=== PATIENT | male | born 1970 | race African-American/Black ===

== ENCOUNTER 2017-04-13 08:34 | Inpatient (IN) | payer OTHER ==
[2017-04-13 09:11] VITALS: BMI 28.8
--- NOTE | 2017-04-13 11:05 | HP ---
CIWA Score - CIWA Score Nausea/Vomitin Muscle Tremors: 3 Anxiety: 3 Agitation: 3 Paroxysmal Sweats: 2 Orientation: 0-Oriented Tacttile Disturbances: 2-Mild Itch/Numbness/Burn Auditory Disturbances: 2-Mild Harshness/Frighten Visual Disturbances: 0-None Headache: 2-Mild CIWA-Ar Total Score: 20 Admission ROS BHS - HPI Chief Complaint: i need help to stop drinking alcohol and cocaine Allergies/Adverse Reactions: Allergies Allergy/AdvReac Type Severity Reaction Status Date / Time Penicillins Allergy Mild Hives Verified 04/13/17 11:16 seafood Allergy Mild Itching Uncoded 04/13/17 11:17 History of Present Illness: this 47 years old male with alcohol and cocaine dependence seeking detox, withdrawal symptom,last detox [facility] 03/18 completed several admission in the past asthma nicotine dependence longest period of sobriety 2 years - Ebola screening Have you traveled outside of the country in the last 21 days: No Have you had contact with anyone from an Ebola affected area: No Have you been sick,other than usual withdrawal symptoms: No - Review of Systems Constitutional: Loss of Appetite, Malaise, Night Sweats, Changes in sleep, Weakness, Unintentional Wgt. Loss EENT: reports: Tearing, Nose Congestion Respiratory: reports: No Symptoms reported Cardiac: reports: Palpitations GI: reports: Diarrhea, Nausea, Vomiting, Abdominal cramping : reports: No Symptoms Reported Musculoskeletal: reports: Back Pain, Muscle Pain Integumentary: reports: Dryness Neuro: reports: Headache, Tremors Endocrine: reports: No Symptoms Reported Hematology: reports: No Symptoms Reported Psychiatric: reports: No Sypmtoms Reported Patient History - Patient Medical History Hx Anemia: No Hx Asthma: Yes (Pt is on MDI) Hx Chronic Obstructive Pulmonary Disease (COPD): No Hx Cancer: No Hx Cardiac Disorders: No Hx Congestive Heart Failure: No Hx Hypertension: No Hx Hypercholesterolemia: No Hx Pacemaker: No HX Cerebrovascular Accident: No Hx Seizures: No Hx Dementia: No Hx Diabetes: No Hx Gastrointestinal Disorders: No Hx Genitourinary Disorders: No Hx Sexually Transmitted Disorders: No Hx Renal Disease (ESRD): No Hx Thyroid Disease: No Hx Human Immunodeficiency Virus (HIV): No (2017 last negative) Hx Hepatitis C: No Hx Depression: No Hx Suicide Attempt: No Hx Bipolar Disorder: No Hx Schizophrenia: No Other Medical History: no sucidal,no homicidal - Patient Surgical History Past Surgical History: No Hx Neurologic Surgery: No Hx Cataract Extraction: No Hx Cardiac Surgery: No Hx Lung Surgery: No Hx Breast Surgery: No Hx Breast Biopsy: No Hx Abdominal Surgery: No Hx Appendectomy: No Hx Cholecystectomy: No Hx Genitourinary Surgery: No Hx Section: No Hx Orthopedic Surgery: No Anesthesia Reaction: No - PPD History Previous Implant?: Yes Documented Results: Positive w/o proof PPD to be Administered?: No - Smoking Cessation Smoking history: Current every day smoker Have you smoked in the past 12 months: Yes Aproximately how many cigarettes per day: 4 Hx Chewing Tobacco Use: No Initiated information on smoking cessation: Yes 'Breaking Loose' booklet given: 04/13/17 - Substance & Tx. History Hx Alcohol Use: Yes Hx Substance Use: Yes Substance Use Type: Alcohol, Cocaine Hx Substance Use Treatment: Yes ([facility] 03/18) - Substances Abused Alcohol Route: Oral Frequency: Daily Amount used: 3 pints of vodka Age of first use: 11 Date of Last Use: 04/12/17 Cocaine Route: Smoking Frequency: Daily Amount used: 70$ Age of first use: 30 Date of Last Use: 04/12/17 Family Disease History - Family Disease History Family History: Denies Admission Physical Exam S - Vital Signs Vital Signs: Vital Signs - 24 hr 04/13/17 09:08 Temperature 96.8 F L Pulse Rate 80 Respiratory 18 Rate Blood Pressure 141/97 - Physical General Appearance: Yes: Moderate Distress, Tremorous, Irritable, Sweating, Anxious HEENTM: Yes: Normal ENT Inspection, DANIELA, Pharynx Normal, Other (traumatic hearing loss right) Respiratory: Yes: Lungs Clear, Normal Breath Sounds, No Respiratory Distress Neck: Yes: Within Normal Limits, Supple, Trachea in good position Breast: Yes: Within Normal Limits Cardiology: Yes: Within Normal Limits, Regular Rhythm, Regular Rate, S1, S2 Abdominal: Yes: Within Normal Limits, Normal Bowel Sounds, Non Tender, Soft Genitourinary: Yes: Within Normal Limits Back: Yes: Muscle Spasm Musculoskeletal: Yes: Back pain, Muscle Pain Extremities: Yes: Tremors 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 NML intact, Fully Oriented, Alert, Motor Strength 5/5 Integumentary: Yes: Dry Lymphatic: Yes: Within Normal Limits - Diagnostic (1) Alcohol dependence with uncomplicated withdrawal Current Visit: Yes Status: Acute (2) Asthma Current Visit: No Status: Active (3) Cocaine dependence Current Visit: No Status: Active (4) 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
[2017-04-13] MEDS ORDERED: chlordiazePOXIDE HCL 25 MG CAPSULE PO PRN (11:16)
[2017-04-13] MEDS ORDERED: ACETAMINOPHEN 325 MG TABLET (FP) PO PRN (11:16)
[2017-04-13] MEDS ORDERED: guaiFENesin/D-METHORPHAN HB 10 ML UNIT-DOSE CUPS PO PRN (11:16)
[2017-04-13] MEDS ORDERED: LOPERAMIDE HCL 2 MG CAPSULE PO PRN (11:16)
[2017-04-13] MEDS ORDERED: P-EPHED 60MG/TRIPROLIDI 2.5MG TABLET PO PRN (11:16)
[2017-04-13] MEDS ORDERED: MENTHOL/PHENOL 1 EACH UD MM PRN (11:16)
[2017-04-13] MEDS ORDERED: IBUPROFEN 400 MG TABLET (FP) PO PRN (11:16)
[2017-04-13] MEDS ORDERED: MAGNESIUM CITRATE 300 ML BOTTLE PO PRN (11:16)
[2017-04-13] MEDS ORDERED: MAGNESIUM HYDROX 2400MG/30ML ORAL SUSPENSION 30 ML CUP PO PRN (11:16)
[2017-04-13] MEDS ORDERED: MAG HYDROX/AL HYDROX/SIMETH 30 ML UNIT-DOSE CUP PO PRN (11:16)
[2017-04-13] MEDS ORDERED: hydrOXYzine PAMOATE 50 MG CAPSULE (FP) PO PRN (11:16)
[2017-04-13] MEDS ORDERED: ALBUTEROL SO4 18 GM HFA INHALER IH PRN (11:19)
[2017-04-13] MEDS ORDERED: chlordiazePOXIDE HCL 25 MG CAPSULE PO ONE (11:25)
--- NOTE | 2017-04-13 16:28 | EKG ---
Test Reason : Blood Pressure : / mmHG Vent. Rate : 067 BPM Atrial Rate : 067 BPM P-R Int : 122 ms QRS Dur : 092 ms QT Int : 396 ms P-R-T Axes : 069 038 030 degrees QTc Int : 418 ms NORMAL SINUS RHYTHM NORMAL ECG NO PREVIOUS ECGS AVAILABLE Confirmed by MD Vadim, Alfa ([id number]) on 04/13/2017 4:28:23 PM Referred By: Confirmed By:Alfa Fierro MD
[2017-04-13] MEDS: chlordiazePOXIDE HCL 25 MG CAPSULE PO SCH ×2 (17:25→22:40)
[2017-04-13] MEDS: THIAMINE HCL 100 MG TABLET (FP) PO SCH (22:40)
[2017-04-13 23:39] LABS: URINE APPEARANCE CLEAR; URINE BILIRUBIN NEGATIVE (NEGATIVE); URINE BLOOD NEGATIVE (NEGATIVE); URINE COLOR YELLOW; URINE GLUCOSE (UA) NEGATIVE (NEGATIVE); URINE KETONE 1+ (NEGATIVE); URINE LEUK ESTERASE NEGATIVE (NEGATIVE); URINE NITRITE NEGATIVE (NEGATIVE); URINE PROTEIN NEGATIVE (NEGATIVE)
[2017-04-14] MEDS: chlordiazePOXIDE HCL 25 MG CAPSULE PO SCH ×4 (05:00→22:15)
[2017-04-14 10:10] LABS: HEMATOCRIT 48.9 % (35.4-49); HEMOGLOBIN 16.3 GM/dL (11.7-16.9); MCH 29.8 pg (25.7-33.7); MCHC 33.4 g/dl (32.0-35.9); MEAN CELL VOLUME 89.4 fl (80-96); MEAN PLT VOLUME 9.4 fl (7.5-11.1); PLATELET COUNT 281 K/MM3 (134-434); RBC 5.47 M/mm3 (4.00-5.60); RDW 13.3 % (11.9-15.9); WHITE BLOOD COUNT 5.2 K/mm3 (4.0-10.0)
[2017-04-14] MEDS: PRENATAL VITAMINS W/ FOLIC ACID TABLET (FP) PO SCH (10:18)
[2017-04-14 10:37] LABS: CHLORIDE 108 mmol/L (98-107); POTASSIUM 4.2 mmol/L (3.5-5.1); SODIUM 141 mmol/L (136-145)
--- NOTE | 2017-04-14 10:45 | PN ---
[facility] CIWA - CIWA Score Nausea/Vomitin-No Nausea/No Vomiting Muscle Tremors: 2 Anxiety: 4-Mod. Anxious/Guarded Agitation: 3 Paroxysmal Sweats: 3 Orientation: 0-Oriented Tacttile Disturbances: 2-Mild Itch/Numbness/Burn Auditory Disturbances: 0-None Visual Disturbances: 3-Moderate Sensitivity Headache: 0-None Present CIWA-Ar Total Score: 17 BHS Progress Note (SOAP) Subjective: Stomach Cramping, Anxious, Interrupted Sleep, Body Aches. Objective: PT. A & O X 3, OBSERVED AMBULATING ON UNIT. NO ACUTE DISTRESS. 04/14/17 10:46 Vital Signs Temperature 96.9 F L 04/14/17 09:46 Pulse Rate 86 04/14/17 09:46 Respiratory Rate 18 04/14/17 09:46 Blood Pressure 125/81 04/14/17 09:46 O2 Sat by Pulse Oximetry (%) Laboratory Tests 04/13/17 04/14/17 20:21 05:50 WBC 5.2 RBC 5.47 Hgb 16.3 D Hct 48.9 D MCV 89.4 MCH 29.8 MCHC 33.4 RDW 13.3 Plt Count 281 MPV 9.4 Urine Color Yellow Urine Appearance Clear Urine pH 6.0 Ur Specific [place] 1.026 Urine Protein Negative Urine Glucose (UA) Negative Urine Ketones 1+ H Urine Blood Negative Urine Nitrite Negative Urine Bilirubin Negative Urine Urobilinogen 2.0 Ur Leukocyte Esterase Negative LABS NOTED. CMP, RPR, HIV AB RESULTS PENDING. 04/14/17 10:47 Assessment: 04/14/17 10:48 WITHDRAWAL SYMPTOMS. Plan: CONTINUE DETOX. INCREASE DAILY PO FLUID INTAKE.
[2017-04-14 11:00] LABS: ALBUMIN 3.9 g/dl (3.4-5.0); ALK PHOS 89 U/L (45-117); ANION GAP 5 (8-16); BLOOD UREA NITROGEN 15 mg/dL (7-18); CALCIUM 8.5 mg/dL (8.5-10.1); CO2 28 mmol/L (21-32); CREATININE 1.3 mg/dL (0.7-1.3); GLUCOSE,RANDOM 99 mg/dL (74-106); SGOT/AST 19 U/L (15-37); SGPT/ALT 21 U/L (12-78); TOT PROT 7.2 g/dl (6.4-8.2)
[2017-04-14] MEDS: THIAMINE HCL 100 MG TABLET (FP) PO SCH (22:14)
[2017-04-15] MEDS: chlordiazePOXIDE HCL 25 MG CAPSULE PO SCH ×2 (05:03→10:00)
[2017-04-15] MEDS: PRENATAL VITAMINS W/ FOLIC ACID TABLET (FP) PO SCH (09:59)
--- NOTE | 2017-04-15 11:07 | PN ---
[facility] CIWA - CIWA Score Nausea/Vomitin-No Nausea/No Vomiting Muscle Tremors: 3 Anxiety: 3 Agitation: 1-Slight > Activity Paroxysmal Sweats: 3 Orientation: 0-Oriented Tacttile Disturbances: 2-Mild Itch/Numbness/Burn Auditory Disturbances: 0-None Visual Disturbances: 2-Mild Sensitivity Headache: 0-None Present CIWA-Ar Total Score: 14 BHS Progress Note (SOAP) Subjective: Interrupted Sleep, Fatigue, Sweating. Objective: PT. A & O X 3. NO ACUTE DISTRESS. 04/15/17 11:06 Vital Signs Temperature 97.1 F L 04/15/17 09:36 Pulse Rate 94 H 04/15/17 09:36 Respiratory Rate 18 04/15/17 09:36 Blood Pressure 133/82 04/15/17 09:36 O2 Sat by Pulse Oximetry (%) Laboratory Tests 04/13/17 04/14/17 04/14/17 20:21 05:50 05:50 WBC 5.2 RBC 5.47 Hgb 16.3 D Hct 48.9 D MCV 89.4 MCH 29.8 MCHC 33.4 RDW 13.3 Plt Count 281 MPV 9.4 Sodium Potassium Chloride Carbon Dioxide Anion Gap BUN Creatinine Creat Clearance w eGFR Random Glucose Calcium Total Bilirubin AST ALT Alkaline Phosphatase Total Protein Albumin Urine Color Yellow Urine Appearance Clear Urine pH 6.0 Ur Specific [place] 1.026 Urine Protein Negative Urine Glucose (UA) Negative Urine Ketones 1+ H Urine Blood Negative Urine Nitrite Negative Urine Bilirubin Negative Urine Urobilinogen 2.0 Ur Leukocyte Esterase Negative RPR Titer HIV 1&2 Antibody Screen Negative HIV P24 Antigen Negative 04/14/17 04/14/17 05:50 05:50 WBC RBC Hgb Hct MCV MCH MCHC RDW Plt Count MPV Sodium 141 Potassium 4.2 Chloride 108 H Carbon Dioxide 28 Anion Gap 5 L BUN 15 D Creatinine 1.3 Creat Clearance w eGFR 58.67 Random Glucose 99 Calcium 8.5 Total Bilirubin 1.0 D AST 19 ALT 21 D Alkaline Phosphatase 89 Total Protein 7.2 Albumin 3.9 D Urine Color Urine Appearance Urine pH Ur Specific [place] Urine Protein Urine Glucose (UA) Urine Ketones Urine Blood Urine Nitrite Urine Bilirubin Urine Urobilinogen Ur Leukocyte Esterase RPR Titer Nonreactive HIV 1&2 Antibody Screen HIV P24 Antigen LABS NOTED. Assessment: 04/15/17 11:06 WITHDRAWAL SYMPTOMS. Plan: CONTINUE DETOX. INCREASE DAILY PO FLUID INTAKE.
[2017-04-15] MEDS: chlordiazePOXIDE 5 MG CAPSULE PO SCH ×2 (17:31→22:45)
[2017-04-15] MEDS: THIAMINE HCL 100 MG TABLET (FP) PO SCH (22:45)
[2017-04-16] MEDS: chlordiazePOXIDE 5 MG CAPSULE PO SCH ×2 (05:34→10:07)
[2017-04-16] MEDS: PRENATAL VITAMINS W/ FOLIC ACID TABLET (FP) PO SCH (10:07)
--- NOTE | 2017-04-16 12:11 | PN ---
BHS Progress Note (SOAP) Subjective: Interrupted Sleep, Fatigue. Objective: PT. A & O X 3. NO ACUTE DISTRESS. 04/16/17 12:10 Vital Signs Temperature 99.4 F 04/16/17 09:37 Pulse Rate 98 H 04/16/17 09:37 Respiratory Rate 18 04/16/17 09:37 Blood Pressure 120/82 04/16/17 09:37 O2 Sat by Pulse Oximetry (%) Laboratory Tests 04/13/17 04/14/17 04/14/17 20:21 05:50 05:50 WBC 5.2 RBC 5.47 Hgb 16.3 D Hct 48.9 D MCV 89.4 MCH 29.8 MCHC 33.4 RDW 13.3 Plt Count 281 MPV 9.4 Sodium Potassium Chloride Carbon Dioxide Anion Gap BUN Creatinine Creat Clearance w eGFR Random Glucose Calcium Total Bilirubin AST ALT Alkaline Phosphatase Total Protein Albumin Urine Color Yellow Urine Appearance Clear Urine pH 6.0 Ur Specific [place] 1.026 Urine Protein Negative Urine Glucose (UA) Negative Urine Ketones 1+ H Urine Blood Negative Urine Nitrite Negative Urine Bilirubin Negative Urine Urobilinogen 2.0 Ur Leukocyte Esterase Negative RPR Titer HIV 1&2 Antibody Screen Negative HIV P24 Antigen Negative 04/14/17 04/14/17 05:50 05:50 WBC RBC Hgb Hct MCV MCH MCHC RDW Plt Count MPV Sodium 141 Potassium 4.2 Chloride 108 H Carbon Dioxide 28 Anion Gap 5 L BUN 15 D Creatinine 1.3 Creat Clearance w eGFR 58.67 Random Glucose 99 Calcium 8.5 Total Bilirubin 1.0 D AST 19 ALT 21 D Alkaline Phosphatase 89 Total Protein 7.2 Albumin 3.9 D Urine Color Urine Appearance Urine pH Ur Specific [place] Urine Protein Urine Glucose (UA) Urine Ketones Urine Blood Urine Nitrite Urine Bilirubin Urine Urobilinogen Ur Leukocyte Esterase RPR Titer Nonreactive HIV 1&2 Antibody Screen HIV P24 Antigen LABS NOTED. Assessment: 04/16/17 12:10 WITHDRAWAL SYMPTOMS. Plan: CONTINUE DETOX. INCREASE DAILY PO FLUID INTAKE.
[2017-04-16] MEDS: chlordiazePOXIDE HCL 10 MG CAPSULE PO SCH ×2 (17:20→22:24)
[2017-04-16] MEDS: THIAMINE HCL 100 MG TABLET (FP) PO SCH (22:24)
[2017-04-17] MEDS: chlordiazePOXIDE HCL 10 MG CAPSULE PO SCH ×2 (05:33→11:02)
[2017-04-17 06:19] VITALS: BP 120/72; PULSE 75; TEMP 97
[2017-04-17] MEDS: PRENATAL VITAMINS W/ FOLIC ACID TABLET (FP) PO SCH (11:02)
--- NOTE | 2017-04-17 18:16 | DS ---
[facility] Detox Discharge Summary Admission Date: 04/13/17 Discharge Date: 04/17/17 - History Present History: Alcohol Dependence, Cocaine Dependence Additional Comments: NO BEDS AVAILABLE AT [facility] AT THIS TIME. PATIENT CONTACT [facility] ADMISSIONS ON 04/20/2017 TO APPLY FOR ADMISSION AT THAT TIME. PATIENT WAS DISCHARGED FROM DETOX UNIT IN STABLE MEDICAL CONDITION. Pertinent Past History: Asthma, Hearing Loss of Right Ear Post trauma. - Physical Exam Results Vital Signs: Vital Signs Temperature 97 F L 04/17/17 06:18 Pulse Rate 75 04/17/17 06:18 Respiratory Rate 18 04/17/17 06:18 Blood Pressure 120/72 04/17/17 06:18 O2 Sat by Pulse Oximetry (%) Pertinent Admission Physical Exam Findings: WITHDRAWAL SYMPTOMS. Laboratory Tests 04/13/17 04/14/17 04/14/17 20:21 05:50 05:50 WBC 5.2 RBC 5.47 Hgb 16.3 D Hct 48.9 D MCV 89.4 MCH 29.8 MCHC 33.4 RDW 13.3 Plt Count 281 MPV 9.4 Sodium Potassium Chloride Carbon Dioxide Anion Gap BUN Creatinine Creat Clearance w eGFR Random Glucose Calcium Total Bilirubin AST ALT Alkaline Phosphatase Total Protein Albumin Urine Color Yellow Urine Appearance Clear Urine pH 6.0 Ur Specific [place] 1.026 Urine Protein Negative Urine Glucose (UA) Negative Urine Ketones 1+ H Urine Blood Negative Urine Nitrite Negative Urine Bilirubin Negative Urine Urobilinogen 2.0 Ur Leukocyte Esterase Negative RPR Titer HIV 1&2 Antibody Screen Negative HIV P24 Antigen Negative 04/14/17 04/14/17 05:50 05:50 WBC RBC Hgb Hct MCV MCH MCHC RDW Plt Count MPV Sodium 141 Potassium 4.2 Chloride 108 H Carbon Dioxide 28 Anion Gap 5 L BUN 15 D Creatinine 1.3 Creat Clearance w eGFR 58.67 Random Glucose 99 Calcium 8.5 Total Bilirubin 1.0 D AST 19 ALT 21 D Alkaline Phosphatase 89 Total Protein 7.2 Albumin 3.9 D Urine Color Urine Appearance Urine pH Ur Specific [place] Urine Protein Urine Glucose (UA) Urine Ketones Urine Blood Urine Nitrite Urine Bilirubin Urine Urobilinogen Ur Leukocyte Esterase RPR Titer Nonreactive HIV 1&2 Antibody Screen HIV P24 Antigen LABS NOTED. - Treatment Hospital Course: Detox Protocol Followed, Detoxed Safely, Responded well, Discharged Condition Good, Rehab Referral Accepted Patient has Accepted a Rehab Referral to: [facility] (PATIENCE N.Srikanth.) . 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
== END 2017-04-17 10:05 | disposition home or self-care (01) | DRG 774 ==
LOC: YASAS 08:34 → Y3N 11:03
PROVIDERS: ADMIT Internal Medicine; ATTEND Internal Medicine
PROC: HZ2ZZZZ Detoxification Services for Substance Abuse Treatment (ICD-10-PCS; principal; 2017-04-13)
DX: F10.230 Alcohol dependence with withdrawal, uncomplicated (principal); F14.20 Cocaine dependence, uncomplicated; F17.201 Nicotine dependence, unspecified, in remission; J45.909 Unspecified asthma, uncomplicated; H91.8X1 Other specified hearing loss, right ear; Z88.0 Allergy status to penicillin; Z91.013 Allergy to seafood
CPT/HCPCS: 36415; 71046-TC-FY; 80053; 81003; 85027; 86593; 87389; 93005; 93010

== ENCOUNTER 2018-03-02 11:51 | Inpatient (IN) | payer OTHER ==
[2018-03-02 12:20] VITALS: BMI 26.7
--- NOTE | 2018-03-02 13:24 | HP ---
CIWA Score Nausea/Vomitin Muscle Tremors: 2 Anxiety: 2 Agitation: 2 Paroxysmal Sweats: 1-Minimal Palms Moist Orientation: 0-Oriented Tacttile Disturbances: 1-Very Mild Itch/Numbness Auditory Disturbances: 1-Very Mild Visual Disturbances: 0-None Headache: 2-Mild CIWA-Ar Total Score: 13 - Admission Criteria [facility] Guidelines: Admission for Medically Managed Detox: Requires at least one of the followin. CIWA greater than 12 2. Seizures within the past 24 hours 3. Delirium tremens within the past 24 hours 4. Hallucinations within the past 24 hours 5. Acute intervention needed for co occurring medical disorder 6. Acute intervention needed for co occurring psychiatric disorder 7. Severe withdrawal that cannot be handled at a lower level of care (continued vomiting, continued diarrhea, abnormal vital signs) requiring intravenous medication and/or fluids 8. Patient presents the following: CIWA greater than 12 Admission Criteria Met: Admission criteria met Admission ROS BHS - HPI Chief Complaint: i need help to stop drinking alcohol and cocaine Allergies/Adverse Reactions: Allergies Allergy/AdvReac Type Severity Reaction Status Date / Time Penicillins Allergy Mild Hives Verified 03/02/18 13:13 seafood Allergy Mild Itching Uncoded 03/02/18 13:13 History of Present Illness: this 48 years old male with alcohol and cocaine dependence,withdrawal symptom, requested detox,last [facility] 01/16 weight loss nicotine dependence multiple admissions in the past but keep relapsing asthma plan for rehab after detox Exam Limitations: No Limitations - Ebola screening Have you traveled outside of the country in the last 21 days: No Have you had contact with anyone from an Ebola affected area: No Have you been sick,other than usual withdrawal symptoms: No Do you have a fever: No - Review of Systems Constitutional: Loss of Appetite, Malaise, Night Sweats, Weakness, Unintentional Wgt. Loss EENT: reports: Nose Congestion Respiratory: reports: No Symptoms reported Cardiac: reports: No Symptoms Reported GI: reports: Nausea, Poor Appetite, Abdominal cramping : reports: No Symptoms Reported Musculoskeletal: reports: Back Pain, Muscle Pain Integumentary: reports: Dryness Neuro: reports: Headache, Tremors Endocrine: reports: No Symptoms Reported Hematology: reports: No Symptoms Reported Psychiatric: reports: No Sypmtoms Reported Patient History - Patient Medical History Hx Anemia: No Hx Asthma: Yes (Pt is on MDI) Hx Chronic Obstructive Pulmonary Disease (COPD): No Hx Cancer: No Hx Cardiac Disorders: No Hx Congestive Heart Failure: No Hx Hypertension: No Hx Hypercholesterolemia: No Hx Pacemaker: No HX Cerebrovascular Accident: No Hx Seizures: No Hx Dementia: No Hx Diabetes: No Hx Gastrointestinal Disorders: No Hx Genitourinary Disorders: No Hx Sexually Transmitted Disorders: No Hx Renal Disease (ESRD): No Hx Thyroid Disease: No Hx Human Immunodeficiency Virus (HIV): No (2017 last negative) Hx Hepatitis C: No Hx Depression: No Hx Suicide Attempt: No Hx Bipolar Disorder: No Hx Schizophrenia: No Other Medical History: no suicidal,nohomicidal - Patient Surgical History Past Surgical History: No Hx Neurologic Surgery: No Hx Cataract Extraction: No Hx Cardiac Surgery: No Hx Lung Surgery: No Hx Breast Surgery: No Hx Breast Biopsy: No Hx Abdominal Surgery: No Hx Appendectomy: No Hx Cholecystectomy: No Hx Genitourinary Surgery: No Hx Section: No Hx Orthopedic Surgery: No Anesthesia Reaction: No - PPD History Previous Implant?: Yes Documented Results: Positive w/proof PPD to be Administered?: No - Smoking Cessation Smoking history: Current every day smoker Have you smoked in the past 12 months: Yes Aproximately how many cigarettes per day: 4 Hx Chewing Tobacco Use: No Initiated information on smoking cessation: Yes 'Breaking Loose' booklet given: 03/02/18 - Substance & Tx. History Hx Alcohol Use: Yes Hx Substance Use: Yes Substance Use Type: Alcohol Hx Substance Use Treatment: Yes ([facility] 01/16 not completed) - Substances Abused Alcohol Route: Oral Frequency: Daily Amount used: 1 and 1/2 pints vodka Age of first use: 11 Date of Last Use: 03/02/18 Crack Route: Smoking Frequency: Daily Amount used: $100 Age of first use: 29 Date of Last Use: 03/01/18 Family Disease History - Family Disease History Family History: Denies Admission Physical Exam BHS - Vital Signs Vital Signs: Vital Signs - 24 hr 03/02/18 12:15 Temperature 97.2 F L Pulse Rate 80 Respiratory 20 Rate Blood Pressure 147/88 - Physical General Appearance: Yes: Moderate Distress, Tremorous, Irritable, Sweating HEENTM: Yes: Normal ENT Inspection, DANIELA, Pharynx Normal, Other (hearing loss right) Respiratory: Yes: Within Normal Limits, Lungs Clear, Normal Breath Sounds Neck: Yes: Within Normal Limits, Supple, Trachea in good position Breast: Yes: Within Normal Limits Cardiology: Yes: Within Normal Limits, Regular Rhythm, Regular Rate, S1, S2 Abdominal: Yes: Within Normal Limits, Normal Bowel Sounds, Non Tender, Soft Genitourinary: Yes: Within Normal Limits Back: Yes: Muscle Spasm Musculoskeletal: Yes: full range of Motion, Back pain, Muscle Pain Extremities: Yes: Within Normal Limits, Normal Range of Motion, Tremors 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 - Detox or Rehab [facility] Level of Care: Medically Managed Detox Regimen/Protocol: Librium [facility] Breath Alcohol Content Breath Alcohol Content: 0.042 Urine Drug Screen - Results Drug Screen Negative: No Urine Drug Screen Results: JOSSY-Cocaine
[2018-03-02] MEDS ORDERED: guaiFENesin/D-METHORPHAN HB 10 ML UNIT-DOSE CUPS PO PRN (13:30)
[2018-03-02] MEDS ORDERED: ACETAMINOPHEN 325 MG TABLET (FP) PO PRN (13:30)
[2018-03-02] MEDS ORDERED: LOPERAMIDE HCL 2 MG CAPSULE PO PRN (13:30)
[2018-03-02] MEDS ORDERED: chlordiazePOXIDE HCL 25 MG CAPSULE PO PRN (13:30)
[2018-03-02] MEDS ORDERED: MAGNESIUM HYDROX 2400MG/30ML ORAL SUSPENSION 30 ML CUP PO PRN (13:30)
[2018-03-02] MEDS ORDERED: MAGNESIUM CITRATE 300 ML BOTTLE PO PRN (13:30)
[2018-03-02] MEDS ORDERED: MENTHOL/PHENOL 1 EACH UD MM PRN (13:30)
[2018-03-02] MEDS ORDERED: MAG HYDROX/AL HYDROX/SIMETH 30 ML UNIT-DOSE CUP PO PRN (13:30)
[2018-03-02] MEDS ORDERED: P-EPHED 60MG/TRIPROLIDI 2.5MG TABLET PO PRN (13:30)
[2018-03-02] MEDS ORDERED: IBUPROFEN 400 MG TABLET (FP) PO PRN (13:30)
[2018-03-02] MEDS ORDERED: ALBUTEROL SO4 8 GM HFA INHALER IH PRN (13:33)
[2018-03-02] MEDS: chlordiazePOXIDE HCL 25 MG CAPSULE PO SCH ×2 (17:13→22:15)
[2018-03-02] MEDS ORDERED: MELATONIN 5 MG TABLETS PO PRN (22:00)
[2018-03-02] MEDS: THIAMINE HCL 100 MG TABLET (FP) PO SCH (22:15)
[2018-03-03] MEDS: chlordiazePOXIDE HCL 25 MG CAPSULE PO SCH ×4 (06:01→22:25)
[2018-03-03 10:06] LABS: HEMATOCRIT 47.7 % (35.4-49); HEMOGLOBIN 15.4 GM/dL (11.7-16.9); MCH 29.2 pg (25.7-33.7); MCHC 32.3 g/dl (32.0-35.9); MEAN CELL VOLUME 90.5 fl (80-96); MEAN PLT VOLUME 8.9 fl (7.5-11.1); PLATELET COUNT 249 K/MM3 (134-434); RBC 5.27 M/mm3 (4.00-5.60); WHITE BLOOD COUNT 4.3 K/mm3 (4.0-10.0)
[2018-03-03] MEDS: PRENATAL VITAMINS W/ FOLIC ACID TABLET (FP) PO SCH (10:38)
[2018-03-03 10:42] LABS: ALBUMIN 3.3 g/dl (3.4-5.0); ALK PHOS 92 U/L (45-117); ANION GAP 8 MMOL/L (8-16); BILIRUBIN,TOTAL 0.3 mg/dL (0.2-1); BLOOD UREA NITROGEN 15 mg/dL (7-18); CALCIUM 8.5 mg/dL (8.5-10.1); CHLORIDE 110 mmol/L (98-107); CO2 24 mmol/L (21-32); GLUCOSE,RANDOM 114 mg/dL (74-106); SGOT/AST 15 U/L (15-37); SGPT/ALT 17 U/L (13-61); SODIUM 142 mmol/L (136-145); TOT PROT 6.1 g/dl (6.4-8.2)
--- NOTE | 2018-03-03 16:25 | PN ---
[facility] CIWA - CIWA Score Nausea/Vomitin-No Nausea/No Vomiting Muscle Tremors: None Anxiety: 3 Agitation: 0-Normal Activity Paroxysmal Sweats: 3 Orientation: 0-Oriented Tacttile Disturbances: 3-Moderate Itch/Numb/Burn Auditory Disturbances: 2-Mild Harshness/Frighten Visual Disturbances: 2-Mild Sensitivity Headache: 0-None Present CIWA-Ar Total Score: 13 S Progress Note (SOAP) Subjective: Fatigue, Sweating, Interrupted Sleep. Objective: PATIENT A & O X 3. IN NO ACUTE DISTRESS. 03/03/18 16:24 Vital Signs Temperature 97.3 F L 03/03/18 14:10 Pulse Rate 84 03/03/18 14:10 Respiratory Rate 18 03/03/18 14:10 Blood Pressure 120/64 03/03/18 14:10 O2 Sat by Pulse Oximetry (%) Laboratory Tests 03/03/18 03/03/18 03/03/18 07:00 07:00 07:00 WBC 4.3 RBC 5.27 Hgb 15.4 Hct 47.7 MCV 90.5 MCH 29.2 MCHC 32.3 RDW 13.0 Plt Count 249 MPV 8.9 Sodium 142 Potassium 4.0 Chloride 110 H Carbon Dioxide 24 Anion Gap 8 BUN 15 Creatinine 1.0 Creat Clearance w eGFR > 60 Random Glucose 114 H Calcium 8.5 Total Bilirubin 0.3 AST 15 ALT 17 Alkaline Phosphatase 92 Total Protein 6.1 L Albumin 3.3 L RPR Titer Nonreactive LABS NOTED. Assessment: 03/03/18 16:24 WITHDRAWAL SYMPTOMS. Plan: CONTINUE DETOX.
[2018-03-03] MEDS: THIAMINE HCL 100 MG TABLET (FP) PO SCH (22:25)
[2018-03-04] MEDS: chlordiazePOXIDE HCL 25 MG CAPSULE PO SCH ×2 (06:00→11:00)
[2018-03-04 06:31] VITALS: TEMP 97.5
[2018-03-04] MEDS: PRENATAL VITAMINS W/ FOLIC ACID TABLET (FP) PO SCH (11:00)
[2018-03-04 15:44] VITALS: BP 119/75; PULSE 92
[2018-03-04] MEDS ORDERED: chlordiazePOXIDE 5 MG CAPSULE PO SCH (17:00)
--- NOTE | 2018-03-04 17:16 | DS ---
[facility] Detox Discharge Summary Admission Date: 03/02/18 Discharge Date: 03/04/18 - History Present History: Alcohol Dependence, Cocaine Dependence Pertinent Past History: 48 years old male admitted with alcohol and cocaine dependence- says that he wants to go home- that the detox here is not really helping him. The librium is making him sleepy and not really helping him. D/w pt that we could reduce dosage etc.. but pt states he wants to detox on his own. d/w pt risks of leaving before detox is completed- relapse to alcohol and cocaine use. Pt states does not need medications for home use - Physical Exam Results Vital Signs: Vital Signs Temperature 97.5 F L 03/04/18 15:44 Pulse Rate 92 H 03/04/18 15:44 Respiratory Rate 18 03/04/18 15:44 Blood Pressure 119/75 03/04/18 15:44 O2 Sat by Pulse Oximetry (%) - Medication Discharge Medications: Ambulatory Orders Albuterol Sulfate Inhaler - [Ventolin Hfa *Inhaler*] 2 inh IH Q4H PRN 10/26/11
--- NOTE | 2018-03-04 17:55 | PN ---
[facility] CIWA - CIWA Score Nausea/Vomitin-No Nausea/No Vomiting Muscle Tremors: None Anxiety: 4-Mod. Anxious/Guarded Agitation: 0-Normal Activity Paroxysmal Sweats: 1-Minimal Palms Moist Orientation: 0-Oriented Tacttile Disturbances: 2-Mild Itch/Numbness/Burn Auditory Disturbances: 0-None Visual Disturbances: 1-Very Mild Sensitivity Headache: 0-None Present CIWA-Ar Total Score: 8 BHS Progress Note (SOAP) Subjective: Anxious, Interrupted Sleep. Objective: PATIENT A & O X 3. IN NO ACUTE DISTRESS. 03/04/18 17:55 Vital Signs Temperature 97.5 F L 03/04/18 15:44 Pulse Rate 92 H 03/04/18 15:44 Respiratory Rate 18 03/04/18 15:44 Blood Pressure 119/75 03/04/18 15:44 O2 Sat by Pulse Oximetry (%) Laboratory Tests 03/03/18 03/03/18 03/03/18 07:00 07:00 07:00 WBC 4.3 RBC 5.27 Hgb 15.4 Hct 47.7 MCV 90.5 MCH 29.2 MCHC 32.3 RDW 13.0 Plt Count 249 MPV 8.9 Sodium 142 Potassium 4.0 Chloride 110 H Carbon Dioxide 24 Anion Gap 8 BUN 15 Creatinine 1.0 Creat Clearance w eGFR > 60 Random Glucose 114 H Calcium 8.5 Total Bilirubin 0.3 AST 15 ALT 17 Alkaline Phosphatase 92 Total Protein 6.1 L Albumin 3.3 L RPR Titer Nonreactive LABS NOTED. Assessment: 03/04/18 17:56 WITHDRAWAL SYMPTOMS. Plan: CONTINUE DETOX.
[2018-03-05] MEDS ORDERED: chlordiazePOXIDE HCL 10 MG CAPSULE PO SCH (17:00)
== END 2018-03-04 17:20 | disposition left against medical advice (07) | DRG 770 ==
LOC: YASAS 11:51 → Y6N 13:27
PROC: HZ2ZZZZ Detoxification Services for Substance Abuse Treatment (ICD-10-PCS; principal; 2018-03-02)
DX: F10.230 Alcohol dependence with withdrawal, uncomplicated (principal); F14.20 Cocaine dependence, uncomplicated; F17.210 Nicotine dependence, cigarettes, uncomplicated; J45.909 Unspecified asthma, uncomplicated; H91.8X1 Other specified hearing loss, right ear; Z88.0 Allergy status to penicillin; Z91.013 Allergy to seafood
CPT/HCPCS: 36415; 80053; 85027; 86593

== ENCOUNTER 2018-04-08 11:16 | Inpatient (IN) | payer OTHER ==
[2018-04-08 11:42] VITALS: BMI 24.7
--- NOTE | 2018-04-08 12:11 | HP ---
CIWA Score Nausea/Vomitin Muscle Tremors: 1-None Visible, but [place] Anxiety: 0-No Anxiety, at Ease Agitation: 0-Normal Activity Paroxysmal Sweats: 3 Orientation: 0-Oriented Tacttile Disturbances: 1-Very Mild Itch/Numbness Auditory Disturbances: 0-None Visual Disturbances: 2-Mild Sensitivity Headache: 3-Moderate CIWA-Ar Total Score: 12 - Admission Criteria OASAS Guidelines: Admission for Medically Managed Detox: Requires at least one of the followin. CIWA greater than 12 2. Seizures within the past 24 hours 3. Delirium tremens within the past 24 hours 4. Hallucinations within the past 24 hours 5. Acute intervention needed for co occurring medical disorder 6. Acute intervention needed for co occurring psychiatric disorder 7. Severe withdrawal that cannot be handled at a lower level of care (continued vomiting, continued diarrhea, abnormal vital signs) requiring intravenous medication and/or fluids 8. Admission ROS S - HPI Allergies/Adverse Reactions: Allergies Allergy/AdvReac Type Severity Reaction Status Date / Time Penicillins Allergy Severe Hives Verified 04/08/18 13:35 seafood Allergy Severe Itching Uncoded 04/08/18 13:35 History of Present Illness: patient here requesting detox from etoh use , reports 2 pints " for years " , reports latest use yesterday , current symptoms as above , starts drinking around noon , denies seizures, blackouts , + tremors , denies falls while intoxicated . cocaine : 100 $/day denies IVDU tobacco : occasional PMHX : denies PSHX : denies PSych : denies , denies current SI / HI SHx : homeless , finances habit though family assistance . Exam Limitations: No Limitations - Ebola screening Have you traveled outside of the country in the last 21 days: No Have you had contact with anyone from an Ebola affected area: No Have you been sick,other than usual withdrawal symptoms: No Do you have a fever: No - Review of Systems Constitutional: See HPI EENT: reports: Other (denies vision loss, denies dysphagia) Respiratory: reports: No Symptoms reported Cardiac: reports: No Symptoms Reported GI: reports: See HPI : reports: No Symptoms Reported Musculoskeletal: reports: No Symptoms Reported Integumentary: reports: No Symptoms Reported Neuro: reports: Headache Endocrine: reports: No Symptoms Reported Psychiatric: reports: Orientated x3, Anxious Patient History - Patient Medical History Hx Anemia: No Hx Asthma: Yes (Pt is on MDI) Hx Chronic Obstructive Pulmonary Disease (COPD): No Hx Cancer: No Hx Cardiac Disorders: No Hx Congestive Heart Failure: No Hx Hypertension: No Hx Hypercholesterolemia: No Hx Pacemaker: No HX Cerebrovascular Accident: No Hx Seizures: No Hx Dementia: No Hx Diabetes: No Hx Gastrointestinal Disorders: No Hx Genitourinary Disorders: No Hx Sexually Transmitted Disorders: No Hx Renal Disease (ESRD): No Hx Thyroid Disease: No Hx Human Immunodeficiency Virus (HIV): No (2017 last negative) Hx Hepatitis C: No Hx Depression: No Hx Suicide Attempt: No Hx Bipolar Disorder: No Hx Schizophrenia: No - Patient Surgical History Past Surgical History: No Hx Neurologic Surgery: No Hx Cataract Extraction: No Hx Cardiac Surgery: No Hx Lung Surgery: No Hx Breast Surgery: No Hx Breast Biopsy: No Hx Abdominal Surgery: No Hx Appendectomy: No Hx Cholecystectomy: No Hx Genitourinary Surgery: No Hx Section: No Hx Orthopedic Surgery: No Anesthesia Reaction: No - Smoking Cessation Smoking history: Current every day smoker Have you smoked in the past 12 months: Yes Aproximately how many cigarettes per day: 4 Hx Chewing Tobacco Use: No Initiated information on smoking cessation: No - Substances Abused Crack Route: Smoking Frequency: Daily Amount used: $100 Age of first use: 28 Date of Last Use: 04/07/18 Alcohol-vodka/beer Route: Oral Frequency: Daily Amount used: 2 pts./1-6 pk. Age of first use: 11 Date of Last Use: 04/07/18 Family Disease History - Family Disease History Family History: Denies Admission Physical Exam S - Vital Signs Vital Signs: Vital Signs - 24 hr 04/08/18 11:38 Temperature 98.2 F Pulse Rate 79 Respiratory 18 Rate Blood Pressure 131/92 - Physical General Appearance: Yes: Mild Distress HEENTM: Yes: EOMI, Hearing grossly Normal, Normocephalic, Normal Voice Respiratory: Yes: Chest Non-Tender, Lungs Clear, Normal Breath Sounds Neck: Yes: No masses,lesions,Nodules, Trachea in good position Cardiology: Yes: Regular Rhythm, Regular Rate, S1, S2 Abdominal: Yes: Normal Bowel Sounds, Non Tender, Soft Back: Yes: Normal Inspection Musculoskeletal: Yes: Gait Steady Extremities: Yes: Normal Capillary Refill, Normal Range of Motion, Non-Tender Neurological: Yes: Motor Strength 5/5 Integumentary: Yes: Normal Color - Diagnostic (1) Cocaine dependence Current Visit: No Status: Chronic (2) Alcohol dependence with uncomplicated withdrawal Current Visit: No Status: Acute (3) Nicotine dependence Current Visit: No Status: Chronic Qualifiers: Nicotine product type: cigarettes BHS Breath Alcohol Content Breath Alcohol Content: 0 Urine Drug Screen - Results Drug Screen Negative: No Urine Drug Screen Results: [facility] Inpatient Rehab Admission - Rehab Decision to Admit Inpatient rehab admission?: No
[2018-04-08] MEDS ORDERED: MENTHOL/PHENOL 1 EACH UD MM PRN (12:24)
[2018-04-08] MEDS ORDERED: diazePAM 5 MG TABLET PO PRN (12:24)
[2018-04-08] MEDS ORDERED: MAGNESIUM CITRATE 300 ML BOTTLE PO PRN (12:24)
[2018-04-08] MEDS ORDERED: MAGNESIUM HYDROX 2400MG/30ML ORAL SUSPENSION 30 ML CUP PO PRN (12:24)
[2018-04-08] MEDS ORDERED: NICOTINE POLACRILEX 2 MG GUM BUC PRN (12:24)
[2018-04-08] MEDS ORDERED: ACETAMINOPHEN 325 MG TABLET (FP) PO PRN (12:24)
[2018-04-08] MEDS ORDERED: IBUPROFEN 400 MG TABLET (FP) PO PRN (12:24)
[2018-04-08] MEDS ORDERED: MAG HYDROX/AL HYDROX/SIMETH 30 ML UNIT-DOSE CUP PO PRN (12:24)
[2018-04-08] MEDS: diazePAM 5 MG TABLET PO SCH ×2 (14:55→22:21)
[2018-04-08] MEDS: MELATONIN 5 MG TABLETS PO PRN (22:21)
[2018-04-08] MEDS: THIAMINE HCL 100 MG TABLET (FP) PO SCH (22:21)
[2018-04-09] MEDS: diazePAM 5 MG TABLET PO SCH ×3 (05:13→22:30)
[2018-04-09] MEDS: PRENATAL VITAMINS W/ FOLIC ACID TABLET (FP) PO SCH (10:33)
[2018-04-09 11:28] LABS: ALBUMIN 3.6 g/dl (3.4-5.0); ALK PHOS 87 U/L (45-117); ANION GAP 5 MMOL/L (8-16); BILIRUBIN,TOTAL 0.5 mg/dL (0.2-1); BLOOD UREA NITROGEN 14 mg/dL (7-18); CALCIUM 8.7 mg/dL (8.5-10.1); CHLORIDE 109 mmol/L (98-107); CO2 27 mmol/L (21-32); CREATININE 1.2 mg/dL (0.55-1.3); GLUCOSE,RANDOM 87 mg/dL (74-106); POTASSIUM 4.3 mmol/L (3.5-5.1); SGOT/AST 21 U/L (15-37); SGPT/ALT 23 U/L (13-61); SODIUM 141 mmol/L (136-145); TOT PROT 6.6 g/dl (6.4-8.2)
[2018-04-09 11:56] LABS: HEMATOCRIT 43.6 % (35.4-49); HEMOGLOBIN 14.9 GM/dL (11.7-16.9); MCH 31.3 pg (25.7-33.7); MCHC 34.3 g/dl (32.0-35.9); MEAN CELL VOLUME 91.3 fl (80-96); MEAN PLT VOLUME 9.6 fl (7.5-11.1); PLATELET COUNT 223 K/MM3 (134-434); RBC 4.78 M/mm3 (4.00-5.60); RDW 13.9 % (11.9-15.9); WHITE BLOOD COUNT 3.2 K/mm3 (4.0-10.0)
--- NOTE | 2018-04-09 15:22 | PN ---
[facility] CIWA - CIWA Score Nausea/Vomitin-No Nausea/No Vomiting Muscle Tremors: None Anxiety: 2 Agitation: 0-Normal Activity Paroxysmal Sweats: 3 Orientation: 0-Oriented Tacttile Disturbances: 2-Mild Itch/Numbness/Burn Auditory Disturbances: 1-Very Mild Visual Disturbances: 3-Moderate Sensitivity Headache: 0-None Present CIWA-Ar Total Score: 11 S Progress Note (SOAP) Subjective: Interrupted Sleep, Sweating, Stomach Cramping. Objective: PATIENT A & O X 3. IN NO ACUTE DISTRESS. 04/09/18 15:21 Vital Signs Temperature 97.2 F L 04/09/18 13:27 Pulse Rate 93 H 04/09/18 13:27 Respiratory Rate 20 04/09/18 13:27 Blood Pressure 130/83 04/09/18 13:27 O2 Sat by Pulse Oximetry (%) Laboratory Tests 04/09/18 04/09/18 04/09/18 05:45 05:45 05:45 WBC 3.2 L RBC 4.78 Hgb 14.9 Hct 43.6 MCV 91.3 MCH 31.3 MCHC 34.3 RDW 13.9 Plt Count 223 MPV 9.6 Sodium 141 Potassium 4.3 Chloride 109 H Carbon Dioxide 27 Anion Gap 5 L BUN 14 Creatinine 1.2 Creat Clearance w eGFR > 60 Random Glucose 87 Calcium 8.7 Total Bilirubin 0.5 AST 21 ALT 23 Alkaline Phosphatase 87 Total Protein 6.6 Albumin 3.6 RPR Titer Nonreactive LABS NOTED. Assessment: 04/09/18 15:21 WITHDRAWAL SYMPTOMS. LEUKOPENIA. 04/09/18 15:21 Plan: CONTINUE DETOX.
[2018-04-09] MEDS: MELATONIN 5 MG TABLETS PO PRN (22:30)
[2018-04-09] MEDS: THIAMINE HCL 100 MG TABLET (FP) PO SCH (22:30)
[2018-04-10] MEDS ORDERED: diazePAM 5 MG TABLET PO SCH (10:00)
[2018-04-10] MEDS: PRENATAL VITAMINS W/ FOLIC ACID TABLET (FP) PO SCH (10:03)
[2018-04-10] MEDS: diazePAM 5 MG TABLET PO SCH ×2 (10:03→22:52)
--- NOTE | 2018-04-10 12:23 | PN ---
S CIWA - CIWA Score Nausea/Vomitin-No Nausea/No Vomiting Muscle Tremors: 3 Anxiety: 1-Mildly Anxious Agitation: 2 Paroxysmal Sweats: 1-Minimal Palms Moist Orientation: 1-Uncertain about Date Tacttile Disturbances: 0-None Auditory Disturbances: 0-None Visual Disturbances: 0-None Headache: 2-Mild CIWA-Ar Total Score: 10 S Progress Note (SOAP) Subjective: tremor sweating anxiety trouble sleep at night Objective: 04/10/18 12:22 Vital Signs Temperature 97.3 F L 04/10/18 09:11 Pulse Rate 75 04/10/18 09:11 Respiratory Rate 18 04/10/18 09:11 Blood Pressure 133/84 04/10/18 09:11 O2 Sat by Pulse Oximetry (%) Laboratory Last Values WBC 3.2 K/mm3 (4.0-10.0) L 04/09/18 05:45 RBC 4.78 M/mm3 (4.00-5.60) 04/09/18 05:45 Hgb 14.9 GM/dL (11.7-16.9) 04/09/18 05:45 Hct 43.6 % (35.4-49) 04/09/18 05:45 MCV 91.3 fl (80-96) 04/09/18 05:45 MCH 31.3 pg (25.7-33.7) 04/09/18 05:45 MCHC 34.3 g/dl (32.0-35.9) 04/09/18 05:45 RDW 13.9 % (11.9-15.9) 04/09/18 05:45 Plt Count 223 K/MM3 (134-434) 04/09/18 05:45 MPV 9.6 fl (7.5-11.1) 04/09/18 05:45 Sodium 141 mmol/L (136-145) 04/09/18 05:45 Potassium 4.3 mmol/L (3.5-5.1) 04/09/18 05:45 Chloride 109 mmol/L (98-107) H 04/09/18 05:45 Carbon Dioxide 27 mmol/L (21-32) 04/09/18 05:45 Anion Gap 5 MMOL/L (8-16) L 04/09/18 05:45 BUN 14 mg/dL (7-18) 04/09/18 05:45 Creatinine 1.2 mg/dL (0.55-1.3) 04/09/18 05:45 Creat Clearance w eGFR > 60 (>60) 04/09/18 05:45 Random Glucose 87 mg/dL (74-106) 04/09/18 05:45 Calcium 8.7 mg/dL (8.5-10.1) 04/09/18 05:45 Total Bilirubin 0.5 mg/dL (0.2-1) 04/09/18 05:45 AST 21 U/L (15-37) 04/09/18 05:45 ALT 23 U/L (13-61) 04/09/18 05:45 Alkaline Phosphatase 87 U/L (45-117) 04/09/18 05:45 Total Protein 6.6 g/dl (6.4-8.2) 04/09/18 05:45 Albumin 3.6 g/dl (3.4-5.0) 04/09/18 05:45 RPR Titer Nonreactive (NONREACTIVE) 04/09/18 05:45 lab noted Assessment: 04/10/18 12:22 withdrawal sx Plan: continue detox
[2018-04-10] MEDS: THIAMINE HCL 100 MG TABLET (FP) PO SCH (22:52)
[2018-04-10] MEDS: MELATONIN 5 MG TABLETS PO PRN (22:53)
--- NOTE | 2018-04-11 09:51 | PN ---
S CIWA - CIWA Score Nausea/Vomitin-No Nausea/No Vomiting Muscle Tremors: 1-None Visible, but [place] Anxiety: 2 Agitation: 1-Slight > Activity Paroxysmal Sweats: 1-Minimal Palms Moist Orientation: 0-Oriented Tacttile Disturbances: 0-None Auditory Disturbances: 0-None Visual Disturbances: 0-None Headache: 1-Very Mild CIWA-Ar Total Score: 6 S Progress Note (SOAP) Subjective: counselor stated that insurance approved one more day of detox change discharge date to 04/12/18 doing good in detox mild tremor social with peers in day room discuss aftercare possible institution [facility] Objective: 04/11/18 11:49 Vital Signs Temperature 96.8 F L 04/11/18 09:09 Pulse Rate 89 04/11/18 09:09 Respiratory Rate 18 04/11/18 09:09 Blood Pressure 135/89 04/11/18 09:09 O2 Sat by Pulse Oximetry (%) Laboratory Last Values WBC 3.2 K/mm3 (4.0-10.0) L 04/09/18 05:45 RBC 4.78 M/mm3 (4.00-5.60) 04/09/18 05:45 Hgb 14.9 GM/dL (11.7-16.9) 04/09/18 05:45 Hct 43.6 % (35.4-49) 04/09/18 05:45 MCV 91.3 fl (80-96) 04/09/18 05:45 MCH 31.3 pg (25.7-33.7) 04/09/18 05:45 MCHC 34.3 g/dl (32.0-35.9) 04/09/18 05:45 RDW 13.9 % (11.9-15.9) 04/09/18 05:45 Plt Count 223 K/MM3 (134-434) 04/09/18 05:45 MPV 9.6 fl (7.5-11.1) 04/09/18 05:45 Sodium 141 mmol/L (136-145) 04/09/18 05:45 Potassium 4.3 mmol/L (3.5-5.1) 04/09/18 05:45 Chloride 109 mmol/L (98-107) H 04/09/18 05:45 Carbon Dioxide 27 mmol/L (21-32) 04/09/18 05:45 Anion Gap 5 MMOL/L (8-16) L 04/09/18 05:45 BUN 14 mg/dL (7-18) 04/09/18 05:45 Creatinine 1.2 mg/dL (0.55-1.3) 04/09/18 05:45 Creat Clearance w eGFR > 60 (>60) 04/09/18 05:45 Random Glucose 87 mg/dL (74-106) 04/09/18 05:45 Calcium 8.7 mg/dL (8.5-10.1) 04/09/18 05:45 Total Bilirubin 0.5 mg/dL (0.2-1) 04/09/18 05:45 AST 21 U/L (15-37) 04/09/18 05:45 ALT 23 U/L (13-61) 04/09/18 05:45 Alkaline Phosphatase 87 U/L (45-117) 04/09/18 05:45 Total Protein 6.6 g/dl (6.4-8.2) 04/09/18 05:45 Albumin 3.6 g/dl (3.4-5.0) 04/09/18 05:45 RPR Titer Nonreactive (NONREACTIVE) 04/09/18 05:45 lab noted Assessment: 04/11/18 11:51 mild withdrawal sx Plan: continue detox
[2018-04-11] MEDS ORDERED: diazePAM 5 MG TABLET PO SCH (10:00)
[2018-04-11] MEDS: PRENATAL VITAMINS W/ FOLIC ACID TABLET (FP) PO SCH (10:32)
[2018-04-11] MEDS: THIAMINE HCL 100 MG TABLET (FP) PO SCH (23:05)
[2018-04-12 06:26] VITALS: BP 117/69; PULSE 76; TEMP 97.2
--- NOTE | 2018-04-12 15:06 | DS ---
[facility] Detox Discharge Summary Admission Date: 04/08/18 Discharge Date: 04/12/18 - History Present History: Alcohol Dependence Additional Comments: 48 years old male admitted om 04/08/18 for alcohol withdrawal stabilization [facility] Past History: patient goes to [facility] around 8 am the editorial writer does not seen nor assess nor evaluate the patient - Physical Exam Results Vital Signs: Vital Signs Temperature 97.2 F L 04/12/18 06:25 Pulse Rate 76 04/12/18 06:25 Respiratory Rate 18 04/12/18 06:25 Blood Pressure 117/69 04/12/18 06:25 O2 Sat by Pulse Oximetry (%) Pertinent Admission Physical Exam Findings: alcohol withdrawal sx Laboratory Last Values WBC 3.2 K/mm3 (4.0-10.0) L 04/09/18 05:45 RBC 4.78 M/mm3 (4.00-5.60) 04/09/18 05:45 Hgb 14.9 GM/dL (11.7-16.9) 04/09/18 05:45 Hct 43.6 % (35.4-49) 04/09/18 05:45 MCV 91.3 fl (80-96) 04/09/18 05:45 MCH 31.3 pg (25.7-33.7) 04/09/18 05:45 MCHC 34.3 g/dl (32.0-35.9) 04/09/18 05:45 RDW 13.9 % (11.9-15.9) 04/09/18 05:45 Plt Count 223 K/MM3 (134-434) 04/09/18 05:45 MPV 9.6 fl (7.5-11.1) 04/09/18 05:45 Sodium 141 mmol/L (136-145) 04/09/18 05:45 Potassium 4.3 mmol/L (3.5-5.1) 04/09/18 05:45 Chloride 109 mmol/L (98-107) H 04/09/18 05:45 Carbon Dioxide 27 mmol/L (21-32) 04/09/18 05:45 Anion Gap 5 MMOL/L (8-16) L 04/09/18 05:45 BUN 14 mg/dL (7-18) 04/09/18 05:45 Creatinine 1.2 mg/dL (0.55-1.3) 04/09/18 05:45 Creat Clearance w eGFR > 60 (>60) 04/09/18 05:45 Random Glucose 87 mg/dL (74-106) 04/09/18 05:45 Calcium 8.7 mg/dL (8.5-10.1) 04/09/18 05:45 Total Bilirubin 0.5 mg/dL (0.2-1) 04/09/18 05:45 AST 21 U/L (15-37) 04/09/18 05:45 ALT 23 U/L (13-61) 04/09/18 05:45 Alkaline Phosphatase 87 U/L (45-117) 04/09/18 05:45 Total Protein 6.6 g/dl (6.4-8.2) 04/09/18 05:45 Albumin 3.6 g/dl (3.4-5.0) 04/09/18 05:45 RPR Titer Nonreactive (NONREACTIVE) 04/09/18 05:45 lab noted - Treatment Hospital Course: Detox Protocol Followed, Detoxed Safely, Responded well, Discharged Condition Good, Rehab Referral Accepted Patient has Accepted a Rehab Referral to: [facility] - Medication Discharge Medications: Ambulatory Orders Albuterol Sulfate Inhaler - [Ventolin HFA Inhaler -] 2 inh IH Q4H PRN #1 inhaler 04/11/18 - Diagnosis (1) Asthma Status: Acute (2) Alcohol dependence with uncomplicated withdrawal Status: Acute (3) Nicotine dependence Status: Acute Qualifiers: Nicotine product type: cigarettes Substance use status: in withdrawal Qualified Code(s): F17.213 - Nicotine dependence, cigarettes, with withdrawal - AMA Did Patient Leave Against Medical Advice: No
== END 2018-04-12 07:30 | disposition home or self-care (01) | DRG 775 ==
LOC: YASAS 11:16 → Y3N 13:58
PROVIDERS: ADMIT Surgery; ATTEND Surgery
PROC: HZ2ZZZZ Detoxification Services for Substance Abuse Treatment (ICD-10-PCS; principal; 2018-04-08)
DX: F10.230 Alcohol dependence with withdrawal, uncomplicated (principal); F17.213 Nicotine dependence, cigarettes, with withdrawal; J45.909 Unspecified asthma, uncomplicated; D72.819 Decreased white blood cell count, unspecified; Z88.0 Allergy status to penicillin; Z91.013 Allergy to seafood
CPT/HCPCS: 36415; 80053; 85027; 86593

== ENCOUNTER 2018-05-12 08:30 | Inpatient (IN) | payer OTHER ==
[2018-05-12 08:54] VITALS: BMI 24.1
--- NOTE | 2018-05-12 10:16 | HP ---
<Julienne Caruso - Last Filed: 05/12/18 13:55> CIWA Score - Admission Criteria OASAS Guidelines: Admission for Medically Managed Detox: Requires at least one of the followin. CIWA greater than 12 2. Seizures within the past 24 hours 3. Delirium tremens within the past 24 hours 4. Hallucinations within the past 24 hours 5. Acute intervention needed for co occurring medical disorder 6. Acute intervention needed for co occurring psychiatric disorder 7. Severe withdrawal that cannot be handled at a lower level of care (continued vomiting, continued diarrhea, abnormal vital signs) requiring intravenous medication and/or fluids 8. Admission [facility] Allergies/Adverse Reactions: Allergies Allergy/AdvReac Type Severity Reaction Status Date / Time Penicillins Allergy Severe Hives Verified 05/12/18 09:22 seafood Allergy Severe Itching Uncoded 05/12/18 09:22 - Review of Systems EENT: reports: Blurred Vision Admission Physical Exam [facility] Vital Signs Vital Signs: Vital Signs - 24 hr 05/12/18 08:52 Temperature 97.8 F Pulse Rate 104 H Respiratory 18 Rate Blood Pressure 123/81 <Jocelyn Roberto - Last Filed: 05/12/18 17:29> CIWA Score Nausea/Vomitin-No Nausea/No Vomiting (pt w/ + DOYLE and symptoms as above .) Muscle Tremors: None Anxiety: 0-No Anxiety, at Ease Agitation: 0-Normal Activity Paroxysmal Sweats: 2 Orientation: 0-Oriented Tacttile Disturbances: 0-None Auditory Disturbances: 0-None Visual Disturbances: 0-None Headache: 4-Moderately Severe CIWA-Ar Total Score: 6 - Admission Criteria OASAS Guidelines: Admission for Medically Managed Detox: Requires at least one of the followin. CIWA greater than 12 2. Seizures within the past 24 hours 3. Delirium tremens within the past 24 hours 4. Hallucinations within the past 24 hours 5. Acute intervention needed for co occurring medical disorder 6. Acute intervention needed for co occurring psychiatric disorder 7. Severe withdrawal that cannot be handled at a lower level of care (continued vomiting, continued diarrhea, abnormal vital signs) requiring intravenous medication and/or fluids 8. Patient presents the following: None of the above Admission Criteria Met: Admission criteria not met Admission [facility] Chief Complaint: pt here requesting detox from etoh use , reports 3 pints /day x 3 years , starts drinking " early " denies w/d seizures , tremors , reports occasional blackouts , denies falls while intoxicated . Prior to 3 years ago was drinking alcohol occasionally , started drinking daily when he lost his job , has been to this facility several times. Latest use was this morning, current symptoms as above : headache reports 5/10 and some sweating , otherwise no symptoms. crack cocaine : 100-500 $/day x 17 years " off and on" , longest sobriety 6 years [id number] with meetings AA/ NA / support groups " stayed busy " tobacco : occasionally PMHX : asthma (dx since , [place]/ [place] ) PSHx : denies Psych : denies Meds : denies SHx : lives w/ friend , unemployed . - Ebola screening Have you traveled outside of the country in the last 21 days: No Have you had contact with anyone from an Ebola affected area: No Have you been sick,other than usual withdrawal symptoms: No Do you have a fever: No - Review of Systems Psychiatric: reports: other (pt intoxicated, denies symptoms at this time, counselor aware , met w/ pt to discuss options.) Patient History - Patient Medical History Hx Anemia: No Hx Asthma: Yes Hx Chronic Obstructive Pulmonary Disease (COPD): No Hx Cancer: No Hx Cardiac Disorders: No Hx Congestive Heart Failure: No Hx Hypertension: No Hx Hypercholesterolemia: No Hx Pacemaker: No HX Cerebrovascular Accident: No Hx Seizures: No Hx Dementia: No Hx Diabetes: No Hx Gastrointestinal Disorders: No Hx Genitourinary Disorders: No Hx Sexually Transmitted Disorders: No Hx Renal Disease (ESRD): No Hx Thyroid Disease: No Hx Human Immunodeficiency Virus (HIV): No (2016 last negative) Hx Hepatitis C: No Hx Depression: No Hx Suicide Attempt: No Hx Bipolar Disorder: No Hx Schizophrenia: No - Patient Surgical History Past Surgical History: No Hx Neurologic Surgery: No Hx Cataract Extraction: No Hx Cardiac Surgery: No Hx Lung Surgery: No Hx Breast Surgery: No Hx Breast Biopsy: No Hx Abdominal Surgery: No Hx Appendectomy: No Hx Cholecystectomy: No Hx Genitourinary Surgery: No Hx Section: No Hx Orthopedic Surgery: No Anesthesia Reaction: No - PPD History Previous Implant?: No Documented Results: Positive w/proof Results: CXR(-) - Reproductive History Patient : No - Smoking Cessation Smoking history: Current every day smoker Have you smoked in the past 12 months: Yes Aproximately how many cigarettes per day: 4 Hx Chewing Tobacco Use: No Initiated information on smoking cessation: No - Substances Abused Alcohol Route: Oral Frequency: Daily Amount used: 2 pint vodka, 1 six pack beer ( 16 oz). Age of first use: 11 Date of Last Use: 05/12/18 crcak Route: Smoking Frequency: Daily Amount used: $100-$600 per day Age of first use: 29 Date of Last Use: 05/11/18 Admission Physical Exam [facility] - Vital Signs Vital Signs: Vital Signs - 24 hr 05/12/18 08:52 Temperature 97.8 F Pulse Rate 104 H Respiratory 18 Rate Blood Pressure 123/81 [facility] Breath Alcohol Content Breath Alcohol Content: 0.034 Urine Drug Screen - Results Drug Screen Negative: No Urine Drug Screen Results: [facility]-Cocaine Inpatient Rehab Admission - Rehab Decision to Admit Inpatient rehab admission?: No
--- NOTE | 2018-05-12 14:00 | HP ---
CIWA Score Nausea/Vomitin-Mild Nausea/No Vomiting Muscle Tremors: 4-Moderate,w/Arms Extend Anxiety: 3 Agitation: 3 Paroxysmal Sweats: 3 Orientation: 0-Oriented Tacttile Disturbances: 0-None Auditory Disturbances: 0-None Visual Disturbances: 0-None Headache: 3-Moderate CIWA-Ar Total Score: 17 - Admission Criteria OASAS Guidelines: Admission for Medically Managed Detox: Requires at least one of the followin. CIWA greater than 12 2. Seizures within the past 24 hours 3. Delirium tremens within the past 24 hours 4. Hallucinations within the past 24 hours 5. Acute intervention needed for co occurring medical disorder 6. Acute intervention needed for co occurring psychiatric disorder 7. Severe withdrawal that cannot be handled at a lower level of care (continued vomiting, continued diarrhea, abnormal vital signs) requiring intravenous medication and/or fluids 8. Admission ROS BHS - HPI Chief Complaint: I am ready to go and get a drink I am having cramping in my belly and sweats. I need detox I need help. Allergies/Adverse Reactions: Allergies Allergy/AdvReac Type Severity Reaction Status Date / Time Penicillins Allergy Severe Hives Verified 05/12/18 09:22 seafood Allergy Severe Itching Uncoded 05/12/18 09:22 History of Present Illness: pt is a 48yr old male with a history of alcohol and cocaine dependence seeking detox for treatment. Exam Limitations: No Limitations - Ebola screening Have you traveled outside of the country in the last 21 days: No Have you had contact with anyone from an Ebola affected area: No Have you been sick,other than usual withdrawal symptoms: No Do you have a fever: No - Review of Systems Constitutional: Chills, Diaphoresis, Loss of Appetite, Night Sweats, Changes in sleep EENT: reports: Tearing, Nose Congestion Respiratory: reports: No Symptoms reported Cardiac: reports: Lightheadedness GI: reports: Diarrhea, Nausea, Poor Appetite, Poor Fluid Intake, Indigestion : reports: No Symptoms Reported Musculoskeletal: reports: Back Pain, Muscle Pain Integumentary: reports: Flushing, Sweating Neuro: reports: Headache, Tingling Endocrine: reports: Excessive Sweating, Flushing, Intolerance to Cold, Intolerance to Heat Hematology: reports: No Symptoms Reported Psychiatric: reports: Judgement Intact, Mood/Affect Appropiate, Orientated x3, Agitated, Anxious Other Systems: Reviewed and Negative Patient History - Patient Medical History Hx Anemia: No Hx Asthma: Yes Hx Chronic Obstructive Pulmonary Disease (COPD): No Hx Cancer: No Hx Cardiac Disorders: No Hx Congestive Heart Failure: No Hx Hypertension: No Hx Hypercholesterolemia: No Hx Pacemaker: No HX Cerebrovascular Accident: No Hx Seizures: No Hx Dementia: No Hx Diabetes: No Hx Gastrointestinal Disorders: No Hx Liver Disease: No Hx Genitourinary Disorders: No Hx Sexually Transmitted Disorders: No Hx Renal Disease (ESRD): No Hx Thyroid Disease: No Hx Human Immunodeficiency Virus (HIV): No (2016 last negative) Hx Hepatitis C: No (negative) Hx Depression: No Hx Suicide Attempt: No (pt denies) Hx Bipolar Disorder: No Hx Schizophrenia: No - Patient Surgical History Past Surgical History: No Hx Neurologic Surgery: No Hx Cataract Extraction: No Hx Cardiac Surgery: No Hx Lung Surgery: No Hx Breast Surgery: No Hx Breast Biopsy: No Hx Abdominal Surgery: No Hx Appendectomy: No Hx Cholecystectomy: No Hx Genitourinary Surgery: No Hx Section: No Hx Orthopedic Surgery: No Anesthesia Reaction: No - PPD History Previous Implant?: No Documented Results: Positive w/proof Results: CXR(-) PPD to be Administered?: No - Reproductive History Patient : No - Smoking Cessation Smoking history: Current every day smoker Have you smoked in the past 12 months: Yes Aproximately how many cigarettes per day: 4 Hx Chewing Tobacco Use: No Initiated information on smoking cessation: Yes 'Breaking Loose' booklet given: 05/12/18 - Substance & Tx. History Hx Alcohol Use: Yes Hx Substance Use: Yes Substance Use Type: Alcohol, Cocaine Hx Substance Use Treatment: Yes (last detox [facility] 04/2018) - Substances Abused Alcohol Route: Oral Frequency: Daily Amount used: 2 pint vodka, 1 six pack beer ( 16 oz). Age of first use: 11 Date of Last Use: 05/12/18 crcak Route: Smoking Frequency: Daily Amount used: $100-$600 per day Age of first use: 29 Date of Last Use: 05/11/18 Family Disease History - Family Disease History Family History: Denies Admission Physical Exam BHS - Vital Signs Vital Signs: Vital Signs - 24 hr 05/12/18 08:52 Temperature 97.8 F Pulse Rate 104 H Respiratory 18 Rate Blood Pressure 123/81 - Physical General Appearance: Yes: Appropriately Dressed, Moderate Distress, Thin, Tremorous, Irritable, Anxious HEENTM: Yes: Hearing grossly Normal, Normocephalic, Normal Voice, Rhinorrhea Respiratory: Yes: Lungs Clear, Normal Breath Sounds, No Respiratory Distress Neck: Yes: No masses,lesions,Nodules Breast: Yes: Within Normal Limits Cardiology: Yes: Regular Rhythm, Regular Rate, S1, S2, Tachycardia Abdominal: Yes: Normal Bowel Sounds, Non Tender Genitourinary: Yes: Within Normal Limits Back: Yes: Normal Inspection Musculoskeletal: Yes: full range of Motion, Back pain, Muscle Pain Extremities: Yes: Normal Capillary Refill, Normal Inspection, Non-Tender, Tremors Neurological: Yes: Fully Oriented, Alert, Normal Response Integumentary: Yes: Normal Color, Diaphoresis Lymphatic: Yes: Within Normal Limits - Diagnostic (1) Alcohol dependence with uncomplicated withdrawal Current Visit: Yes Status: Chronic (2) Asthma Current Visit: Yes Status: Chronic (3) Nicotine dependence Current Visit: Yes Status: Chronic Qualifiers: Nicotine product type: cigarettes Substance use status: uncomplicated Qualified Code(s): F17.210 - Nicotine dependence, cigarettes, uncomplicated (4) Cocaine dependence Current Visit: Yes Status: Chronic Cleared for Admission [facility] - Detox or Rehab [facility] Level of Care: Medically Managed Detox Regimen/Protocol: Librium [facility] Breath Alcohol Content Breath Alcohol Content: 0.034 Urine Drug Screen - Results Drug Screen Negative: No Urine Drug Screen Results: [facility] Inpatient Rehab Admission - Rehab Decision to Admit Inpatient rehab admission?: No
[2018-05-12] MEDS ORDERED: ACETAMINOPHEN 325 MG TABLET (FP) PO PRN ×2 (14:04)
[2018-05-12] MEDS ORDERED: MENTHOL/PHENOL 1 EACH UD MM PRN (14:04)
[2018-05-12] MEDS ORDERED: METHOCARBAMOL 500 MG TABLET PO PRN (14:04)
[2018-05-12] MEDS ORDERED: MAGNESIUM CITRATE 300 ML BOTTLE PO PRN (14:04)
[2018-05-12] MEDS ORDERED: ONDANSETRON *ODT* 4 MG TABLET SL PRN (14:04)
[2018-05-12] MEDS ORDERED: MAG HYDROX/AL HYDROX/SIMETH 30 ML UNIT-DOSE CUP PO PRN (14:04)
[2018-05-12] MEDS ORDERED: NICOTINE POLACRILEX 4 MG GUM BUC PRN (14:04)
[2018-05-12] MEDS ORDERED: chlordiazePOXIDE HCL 10 MG CAPSULE PO PRN (14:04)
[2018-05-12] MEDS ORDERED: BISMUTH SUBSALICYLATE 262 MG/15 ML BTL PO PRN (14:04)
[2018-05-12] MEDS ORDERED: chlordiazePOXIDE HCL 25 MG CAPSULE PO ONE (14:04)
[2018-05-12] MEDS ORDERED: MAGNESIUM HYDROX 2400MG/30ML ORAL SUSPENSION 30 ML CUP PO PRN (14:04)
[2018-05-12] MEDS ORDERED: IBUPROFEN 400 MG TABLET (FP) PO PRN (14:04)
[2018-05-12] MEDS ORDERED: ALBUTEROL SO4 8 GM HFA INHALER IH PRN (14:07)
[2018-05-12] MEDS: hydrOXYzine PAMOATE 25 MG CAPSULE (FP) PO PRN (17:12)
[2018-05-12] MEDS: MELATONIN 5 MG TABLETS PO PRN (22:23)
[2018-05-12] MEDS: chlordiazePOXIDE HCL 25 MG CAPSULE PO SCH (22:23)
[2018-05-12] MEDS: THIAMINE HCL 100 MG TABLET (FP) PO SCH (22:23)
[2018-05-13] MEDS: chlordiazePOXIDE HCL 25 MG CAPSULE PO SCH ×2 (06:26→12:27)
[2018-05-13 09:45] LABS: HEMATOCRIT 43.8 % (35.4-49); HEMOGLOBIN 15.3 GM/dL (11.7-16.9); MCH 32.1 pg (25.7-33.7); MCHC 34.9 g/dl (32.0-35.9); MEAN CELL VOLUME 92.1 fl (80-96); MEAN PLT VOLUME 9.5 fl (7.5-11.1); PLATELET COUNT 301 K/MM3 (134-434); RBC 4.75 M/mm3 (4.00-5.60); RDW 13.8 % (11.9-15.9); WHITE BLOOD COUNT 5.2 K/mm3 (4.0-10.0)
[2018-05-13 09:59] LABS: ALBUMIN 3.9 g/dl (3.4-5.0); ALK PHOS 82 U/L (45-117); ANION GAP 6 MMOL/L (8-16); BILIRUBIN,TOTAL 0.4 mg/dL (0.2-1); BLOOD UREA NITROGEN 18 mg/dL (7-18); CHLORIDE 106 mmol/L (98-107); CO2 27 mmol/L (21-32); CREATININE 1.3 mg/dL (0.55-1.3); GLUCOSE,RANDOM 91 mg/dL (74-106); POTASSIUM 4.5 mmol/L (3.5-5.1); SGOT/AST 20 U/L (15-37); SGPT/ALT 20 U/L (13-61); SODIUM 140 mmol/L (136-145)
[2018-05-13] MEDS: PRENATAL VITAMINS W/ FOLIC ACID TABLET (FP) PO SCH (10:35)
[2018-05-13] MEDS: hydrOXYzine PAMOATE 25 MG CAPSULE (FP) PO PRN ×2 (10:36→22:16)
[2018-05-13] MEDS: NICOTINE 14 MG/24 HOURS TOPICAL PATCH TD SCH (10:46)
--- NOTE | 2018-05-13 10:46 | EKG ---
Test Reason : Blood Pressure : / mmHG Vent. Rate : 080 BPM Atrial Rate : 080 BPM P-R Int : 128 ms QRS Dur : 086 ms QT Int : 378 ms P-R-T Axes : 074 064 051 degrees QTc Int : 435 ms NORMAL SINUS RHYTHM NORMAL ECG WHEN COMPARED WITH ECG OF 13-APR-2017 13:50, NO SIGNIFICANT CHANGE WAS FOUND Confirmed by ULISES VARGAS MD ([id number]) on 05/13/2018 10:46:30 AM Referred By: Confirmed By:ULISES VARGAS MD
[2018-05-13] MEDS ORDERED: DICYCLOMINE HCL 10 MG CAPSULE PO PRN (14:01)
--- NOTE | 2018-05-13 14:01 | PN ---
[facility] CIWA - CIWA Score Nausea/Vomitin-No Nausea/No Vomiting Muscle Tremors: 3 Anxiety: 3 Agitation: 3 Paroxysmal Sweats: 2 Orientation: 0-Oriented Tacttile Disturbances: 0-None Auditory Disturbances: 0-None Visual Disturbances: 0-None Headache: 0-None Present CIWA-Ar Total Score: 11 S Progress Note (SOAP) Subjective: stomach cramps sweats chills interrupted sleep Objective: 05/13/18 14:00 Vital Signs Temperature 98.1 F 05/13/18 13:32 Pulse Rate 116 H 05/13/18 13:32 Respiratory Rate 17 05/13/18 13:32 Blood Pressure 122/73 05/13/18 13:32 O2 Sat by Pulse Oximetry (%) Laboratory Tests 05/12/18 05/13/18 05/13/18 14:00 05:50 05:50 WBC 5.2 RBC 4.75 Hgb 15.3 Hct 43.8 MCV 92.1 MCH 32.1 MCHC 34.9 RDW 13.8 Plt Count 301 D MPV 9.5 Sodium 140 Potassium 4.5 Chloride 106 Carbon Dioxide 27 Anion Gap 6 L BUN 18 Creatinine 1.3 Creat Clearance w eGFR 58.43 Random Glucose 91 Calcium 9.0 Total Bilirubin 0.4 AST 20 ALT 20 Alkaline Phosphatase 82 Total Protein 7.0 Albumin 3.9 RPR Titer HIV 1&2 Antibody Screen Negative HIV P24 Antigen Negative 05/13/18 05:50 WBC RBC Hgb Hct MCV MCH MCHC RDW Plt Count MPV Sodium Potassium Chloride Carbon Dioxide Anion Gap BUN Creatinine Creat Clearance w eGFR Random Glucose Calcium Total Bilirubin AST ALT Alkaline Phosphatase Total Protein Albumin RPR Titer Nonreactive HIV 1&2 Antibody Screen HIV P24 Antigen aaox3 ambulating no acute distress Assessment: 05/13/18 14:00 withdrawal sx Plan: continue detox bentyl ordered increase fluids
[2018-05-13] MEDS: THIAMINE HCL 100 MG TABLET (FP) PO SCH (22:14)
[2018-05-13] MEDS: MELATONIN 5 MG TABLETS PO PRN (22:14)
[2018-05-13] MEDS: chlordiazePOXIDE 5 MG CAPSULE PO SCH (22:14)
[2018-05-14] MEDS: chlordiazePOXIDE 5 MG CAPSULE PO SCH ×2 (06:22→12:54)
[2018-05-14] MEDS: hydrOXYzine PAMOATE 25 MG CAPSULE (FP) PO PRN ×2 (09:52→22:08)
[2018-05-14] MEDS: PRENATAL VITAMINS W/ FOLIC ACID TABLET (FP) PO SCH (09:52)
[2018-05-14] MEDS: NICOTINE 14 MG/24 HOURS TOPICAL PATCH TD SCH (10:03)
--- NOTE | 2018-05-14 12:47 | PN ---
S CIWA - CIWA Score Nausea/Vomitin Muscle Tremors: 2 Anxiety: 2 Agitation: 2 Paroxysmal Sweats: 2 Orientation: 0-Oriented Tacttile Disturbances: 1-Very Mild Itch/Numbness Auditory Disturbances: 0-None Visual Disturbances: 0-None Headache: 2-Mild CIWA-Ar Total Score: 13 S Progress Note (SOAP) Subjective: Joint pain, sweats, tremors, diarrhea and interrupted sleep Objective: 05/14/18 12:46 Last Vital Signs Temp Pulse Resp BP Pulse Ox 98.1 F 83 18 126/61 05/14/18 10:20 05/14/18 10:20 05/14/18 10:20 05/14/18 10:20 Laboratory Last Values WBC 5.2 K/mm3 (4.0-10.0) 05/13/18 05:50 RBC 4.75 M/mm3 (4.00-5.60) 05/13/18 05:50 Hgb 15.3 GM/dL (11.7-16.9) 05/13/18 05:50 Hct 43.8 % (35.4-49) 05/13/18 05:50 MCV 92.1 fl (80-96) 05/13/18 05:50 MCH 32.1 pg (25.7-33.7) 05/13/18 05:50 MCHC 34.9 g/dl (32.0-35.9) 05/13/18 05:50 RDW 13.8 % (11.9-15.9) 05/13/18 05:50 Plt Count 301 K/MM3 (134-434) D 05/13/18 05:50 MPV 9.5 fl (7.5-11.1) 05/13/18 05:50 Sodium 140 mmol/L (136-145) 05/13/18 05:50 Potassium 4.5 mmol/L (3.5-5.1) 05/13/18 05:50 Chloride 106 mmol/L (98-107) 05/13/18 05:50 Carbon Dioxide 27 mmol/L (21-32) 05/13/18 05:50 Anion Gap 6 MMOL/L (8-16) L 05/13/18 05:50 BUN 18 mg/dL (7-18) 05/13/18 05:50 Creatinine 1.3 mg/dL (0.55-1.3) 05/13/18 05:50 Creat Clearance w eGFR 58.43 (>60) 05/13/18 05:50 Random Glucose 91 mg/dL (74-106) 05/13/18 05:50 Calcium 9.0 mg/dL (8.5-10.1) 05/13/18 05:50 Total Bilirubin 0.4 mg/dL (0.2-1) 05/13/18 05:50 AST 20 U/L (15-37) 05/13/18 05:50 ALT 20 U/L (13-61) 05/13/18 05:50 Alkaline Phosphatase 82 U/L (45-117) 05/13/18 05:50 Total Protein 7.0 g/dl (6.4-8.2) 05/13/18 05:50 Albumin 3.9 g/dl (3.4-5.0) 05/13/18 05:50 RPR Titer Nonreactive (NONREACTIVE) 05/13/18 05:50 HIV 1&2 Antibody Screen Negative 05/12/18 14:00 HIV P24 Antigen Negative 05/12/18 14:00 Labs noted Assessment: 05/14/18 12:46 Withdrawal sx Plan: Continue detox
[2018-05-14] MEDS ORDERED: chlordiazePOXIDE HCL 10 MG CAPSULE PO PRN (21:00)
[2018-05-14] MEDS: chlordiazePOXIDE HCL 10 MG CAPSULE PO SCH (22:08)
[2018-05-14] MEDS: MELATONIN 5 MG TABLETS PO PRN (22:08)
[2018-05-14] MEDS: THIAMINE HCL 100 MG TABLET (FP) PO SCH (22:08)
[2018-05-15] MEDS: chlordiazePOXIDE HCL 10 MG CAPSULE PO SCH ×3 (06:11→22:09)
[2018-05-15] MEDS: hydrOXYzine PAMOATE 25 MG CAPSULE (FP) PO PRN ×3 (10:15→23:51)
[2018-05-15] MEDS: PRENATAL VITAMINS W/ FOLIC ACID TABLET (FP) PO SCH (10:15)
[2018-05-15] MEDS: NICOTINE 14 MG/24 HOURS TOPICAL PATCH TD SCH (10:15)
--- NOTE | 2018-05-15 14:07 | PN ---
[facility] Progress Note Note: Vital Signs Temperature 97.7 F 05/15/18 13:47 Pulse Rate 104 H 05/15/18 13:47 Respiratory Rate 18 05/15/18 13:47 Blood Pressure 137/83 05/15/18 13:47 O2 Sat by Pulse Oximetry (%) Laboratory Last Values WBC 5.2 K/mm3 (4.0-10.0) 05/13/18 05:50 RBC 4.75 M/mm3 (4.00-5.60) 05/13/18 05:50 Hgb 15.3 GM/dL (11.7-16.9) 05/13/18 05:50 Hct 43.8 % (35.4-49) 05/13/18 05:50 MCV 92.1 fl (80-96) 05/13/18 05:50 MCH 32.1 pg (25.7-33.7) 05/13/18 05:50 MCHC 34.9 g/dl (32.0-35.9) 05/13/18 05:50 RDW 13.8 % (11.9-15.9) 05/13/18 05:50 Plt Count 301 K/MM3 (134-434) D 05/13/18 05:50 MPV 9.5 fl (7.5-11.1) 05/13/18 05:50 Sodium 140 mmol/L (136-145) 05/13/18 05:50 Potassium 4.5 mmol/L (3.5-5.1) 05/13/18 05:50 Chloride 106 mmol/L (98-107) 05/13/18 05:50 Carbon Dioxide 27 mmol/L (21-32) 05/13/18 05:50 Anion Gap 6 MMOL/L (8-16) L 05/13/18 05:50 BUN 18 mg/dL (7-18) 05/13/18 05:50 Creatinine 1.3 mg/dL (0.55-1.3) 05/13/18 05:50 Creat Clearance w eGFR 58.43 (>60) 05/13/18 05:50 Random Glucose 91 mg/dL (74-106) 05/13/18 05:50 Calcium 9.0 mg/dL (8.5-10.1) 05/13/18 05:50 Total Bilirubin 0.4 mg/dL (0.2-1) 05/13/18 05:50 AST 20 U/L (15-37) 05/13/18 05:50 ALT 20 U/L (13-61) 05/13/18 05:50 Alkaline Phosphatase 82 U/L (45-117) 05/13/18 05:50 Total Protein 7.0 g/dl (6.4-8.2) 05/13/18 05:50 Albumin 3.9 g/dl (3.4-5.0) 05/13/18 05:50 RPR Titer Nonreactive (NONREACTIVE) 05/13/18 05:50 HIV 1&2 Antibody Screen Negative 05/12/18 14:00 HIV P24 Antigen Negative 05/12/18 14:00 c/o of interrupted sleep and sweats aox3 no distress full rom ambulating in the unit if stable d/c tomorrow morning
[2018-05-15] MEDS: MELATONIN 5 MG TABLETS PO PRN (22:09)
[2018-05-15] MEDS: THIAMINE HCL 100 MG TABLET (FP) PO SCH (22:09)
[2018-05-16 07:12] VITALS: TEMP 97.7
[2018-05-16 09:27] VITALS: BP 138/87; PULSE 82
--- NOTE | 2018-05-16 11:03 | DS ---
[facility] Detox Discharge Summary Admission Date: 05/12/18 - History Present History: Alcohol Dependence - Physical Exam Results Vital Signs: Vital Signs Temperature 97.7 F 05/16/18 09:27 Pulse Rate 82 05/16/18 09:27 Respiratory Rate 18 05/16/18 09:27 Blood Pressure 138/87 05/16/18 09:27 O2 Sat by Pulse Oximetry (%) - Treatment Hospital Course: Detox Protocol Followed, Detoxed Safely, Responded well, Discharged Condition Good, Rehab Referral Accepted - Medication Discharge Medications: Ambulatory Orders Albuterol Sulfate Inhaler - [Ventolin HFA Inhaler -] 2 inh IH Q4H PRN #1 inhaler 04/11/18 - Diagnosis (1) Alcohol dependence with uncomplicated withdrawal Current Visit: Yes Status: Chronic (2) Asthma Current Visit: Yes Status: Chronic (3) Nicotine dependence Current Visit: Yes Status: Chronic Qualifiers: Nicotine product type: cigarettes Substance use status: uncomplicated Qualified Code(s): F17.210 - Nicotine dependence, cigarettes, uncomplicated (4) Cocaine dependence Current Visit: Yes Status: Chronic - AMA Did Patient Leave Against Medical Advice: No (referred to arms yancy)
[2018-05-16] MEDS: NICOTINE 14 MG/24 HOURS TOPICAL PATCH TD SCH (11:15)
[2018-05-16] MEDS: PRENATAL VITAMINS W/ FOLIC ACID TABLET (FP) PO SCH (11:15)
== END 2018-05-16 11:30 | disposition home or self-care (01) | DRG 774 ==
LOC: YASAS 08:30 → Y6N 14:09
PROVIDERS: ADMIT Surgery; ATTEND Surgery
PROC: HZ2ZZZZ Detoxification Services for Substance Abuse Treatment (ICD-10-PCS; principal; 2018-05-12)
DX: F10.230 Alcohol dependence with withdrawal, uncomplicated (principal); F14.20 Cocaine dependence, uncomplicated; F17.210 Nicotine dependence, cigarettes, uncomplicated; J45.909 Unspecified asthma, uncomplicated; Z88.0 Allergy status to penicillin; Z91.013 Allergy to seafood
CPT/HCPCS: 36415; 71046-TC-FY; 80053; 85027; 86593; 87389; 93005; 93010

== ENCOUNTER 2018-07-14 12:10 | Inpatient (IN) | payer OTHER ==
[2018-07-14 12:24] VITALS: BMI 24.8
--- NOTE | 2018-07-14 13:13 | HP ---
CIWA Score Nausea/Vomitin Muscle Tremors: 2 Anxiety: 2 Agitation: 2 Paroxysmal Sweats: 1-Minimal Palms Moist Orientation: 0-Oriented Tacttile Disturbances: 1-Very Mild Itch/Numbness Auditory Disturbances: 1-Very Mild Visual Disturbances: 0-None Headache: 2-Mild CIWA-Ar Total Score: 13 - Admission Criteria OASAS Guidelines: Admission for Medically Managed Detox: Requires at least one of the followin. CIWA greater than 12 2. Seizures within the past 24 hours 3. Delirium tremens within the past 24 hours 4. Hallucinations within the past 24 hours 5. Acute intervention needed for co occurring medical disorder 6. Acute intervention needed for co occurring psychiatric disorder 7. Severe withdrawal that cannot be handled at a lower level of care (continued vomiting, continued diarrhea, abnormal vital signs) requiring intravenous medication and/or fluids 8. Admission ROS S - HPI Chief Complaint: i need help to stop drinking alcohol and crack Allergies/Adverse Reactions: Allergies Allergy/AdvReac Type Severity Reaction Status Date / Time fish derived Allergy Severe Itching Verified 05/13/18 14:43 Penicillins Allergy Severe Hives Verified 05/12/18 09:22 shellfish derived Allergy Severe Itching Verified 05/13/18 14:43 seafood Allergy Severe Itching Uncoded 05/12/18 09:22 History of Present Illness: this 48 years old male with alcohol and crack dependence,seeking detox, withdrawal symptom, multiple admissions in detox but keep relapsing last admission in 05/12/17 to 05/16/18 longest period of sobriety in 8 years plan for custodial residence after detox also has history of asthma Exam Limitations: No Limitations - Ebola screening Have you traveled outside of the country in the last 21 days: No (N) Have you had contact with anyone from an Ebola affected area: No Do you have a fever: No - Review of Systems Constitutional: Loss of Appetite, Malaise, Night Sweats, Changes in sleep, Weakness EENT: reports: Tearing, Nose Congestion Respiratory: reports: No Symptoms reported, Other (asthma) Cardiac: reports: No Symptoms Reported GI: reports: No Symptoms Reported, Diarrhea, Nausea, Indigestion, Abdominal cramping : reports: No Symptoms Reported Musculoskeletal: reports: Back Pain, Muscle Pain Integumentary: reports: Dryness Neuro: reports: Headache, Tremors Endocrine: reports: No Symptoms Reported Hematology: reports: No Symptoms Reported Psychiatric: reports: No Sypmtoms Reported, Judgement Intact, Mood/Affect Appropiate, Orientated x3 Other Systems: Reviewed and Negative Patient History - Patient Medical History Hx Anemia: No Hx Asthma: Yes (on albuterol inhaler) Hx Chronic Obstructive Pulmonary Disease (COPD): No Hx Cancer: No Hx Cardiac Disorders: No Hx Congestive Heart Failure: No Hx Hypertension: No Hx Hypercholesterolemia: No Hx Pacemaker: No HX Cerebrovascular Accident: No Hx Seizures: No Hx Dementia: No Hx Diabetes: No Hx Gastrointestinal Disorders: No Hx Liver Disease: No Hx Genitourinary Disorders: No Hx Sexually Transmitted Disorders: No Hx Renal Disease (ESRD): No Hx Thyroid Disease: No Hx Human Immunodeficiency Virus (HIV): No (last 05/17 negative) Hx Hepatitis C: No Hx Depression: No Hx Suicide Attempt: No Hx Bipolar Disorder: No Hx Schizophrenia: No Other Medical History: no suicidal,no homicidal - Patient Surgical History Past Surgical History: No Hx Neurologic Surgery: No Hx Cataract Extraction: No Hx Cardiac Surgery: No Hx Lung Surgery: No Hx Breast Surgery: No Hx Breast Biopsy: No Hx Abdominal Surgery: No Hx Appendectomy: No Hx Cholecystectomy: No Hx Genitourinary Surgery: No Hx Section: No Hx Orthopedic Surgery: No Anesthesia Reaction: No - PPD History Documented Results: Positive w/proof Date: 05/16/18 Results: chest x ray - Smoking Cessation Smoking history: Never smoked Hx Chewing Tobacco Use: No - Substance & Tx. History Hx Alcohol Use: Yes Hx Substance Use: Yes Substance Use Type: Alcohol, Cocaine Hx Substance Use Treatment: Yes ([facility] 05/12/18 to 05/16/18) - Substances abused Alcohol Substance route: Oral Frequency: Daily Amount used: VODKA- 3PT/ 6PK- 24OZ CAN Age of first use: 11 Date of last use: 07/14/18 Crack Substance route: Smoking Frequency: Daily Amount used: $200 Age of first use: 29 Date of last use: 07/14/18 Family Disease History - Family Disease History Family History: Denies Admission Physical Exam BHS - Vital Signs Vital Signs: Vital Signs - 24 hr 07/14/18 12:18 Temperature 96.9 F L Pulse Rate 72 Respiratory 18 Rate Blood Pressure 134/87 - Physical General Appearance: Yes: Moderate Distress, Tremorous, Irritable, Sweating, Anxious HEENTM: Yes: Normocephalic, DANIELA, Pharynx Normal Respiratory: Yes: Lungs Clear, Normal Breath Sounds, No Respiratory Distress Neck: Yes: Within Normal Limits, Supple, Trachea in good position Breast: Yes: Within Normal Limits Cardiology: Yes: Within Normal Limits, Regular Rhythm, Regular Rate, S1, S2 Abdominal: Yes: Within Normal Limits, Normal Bowel Sounds, Non Tender, Flat, Soft Genitourinary: Yes: Within Normal Limits Back: Yes: Muscle Spasm Musculoskeletal: Yes: Back pain, Muscle Pain Extremities: Yes: Within Normal Limits, Normal Range of Motion, Tremors 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, Fully Oriented, Alert, Motor Strength 5/5 Integumentary: Yes: Dry Lymphatic: Yes: Within Normal Limits - Diagnostic (1) Alcohol dependence with uncomplicated withdrawal Current Visit: No Status: Chronic (2) Asthma Current Visit: No Status: Chronic (3) Cocaine dependence Current Visit: No Status: Chronic (4) Nicotine dependence Current Visit: No Status: Chronic Qualifiers: Nicotine product type: cigarettes Substance use status: uncomplicated Qualified Code(s): F17.210 - Nicotine dependence, cigarettes, uncomplicated (5) Weight loss Current Visit: Yes Status: Acute (6) Dehydration Current Visit: Yes Status: Acute Cleared for Admission S - Detox or Rehab [facility] Level of Care: Medically Managed Detox Regimen/Protocol: Librium Breathalyzer - Breathalyzer Breathalyzer: 0 Urine Drug Screen - Test Device Lot number: [id number] Expiration date: 03/31/20 - Control Is test valid?: Yes - Results Drug screen NEGATIVE: No Urine drug screen results: [facility]Cocaine Inpatient Rehab Admission - Rehab Decision to Admit Inpatient rehab admission?: No
[2018-07-14] MEDS ORDERED: MENTHOL/PHENOL 1 EACH UD MM PRN (13:23)
[2018-07-14] MEDS ORDERED: ACETAMINOPHEN 325 MG TABLET (FP) PO PRN ×2 (13:23)
[2018-07-14] MEDS ORDERED: MAGNESIUM HYDROX 2400MG/30ML ORAL SUSPENSION 30 ML CUP PO PRN (13:23)
[2018-07-14] MEDS ORDERED: BISMUTH SUBSALICYLATE 262 MG/15 ML BTL PO PRN (13:23)
[2018-07-14] MEDS ORDERED: MAGNESIUM CITRATE 300 ML BOTTLE PO PRN (13:23)
[2018-07-14] MEDS ORDERED: METHOCARBAMOL 500 MG TABLET PO PRN (13:23)
[2018-07-14] MEDS ORDERED: MAG HYDROX/AL HYDROX/SIMETH 30 ML UNIT-DOSE CUP PO PRN (13:23)
[2018-07-14] MEDS ORDERED: IBUPROFEN 400 MG TABLET (FP) PO PRN (13:23)
[2018-07-14] MEDS ORDERED: ALBUTEROL SO4 8 GM HFA INHALER IH PRN (13:26)
[2018-07-14] MEDS: chlordiazePOXIDE HCL 25 MG CAPSULE PO PRN (15:02)
[2018-07-14 17:13] LABS: HEMATOCRIT 49.2 % (35.4-49); HEMOGLOBIN 15.9 GM/dL (11.7-16.9); MCHC 32.2 g/dl (32.0-35.9); MEAN CELL VOLUME 93.2 fl (80-96); MEAN PLT VOLUME 8.8 fl (7.5-11.1); PLATELET COUNT 276 K/MM3 (134-434); RBC 5.28 M/mm3 (4.00-5.60); RDW 13.7 % (11.9-15.9); WHITE BLOOD COUNT 4.6 K/mm3 (4.0-10.0)
[2018-07-14 17:20] LABS: ALBUMIN 3.9 g/dl (3.4-5.0); BILIRUBIN,TOTAL 0.5 mg/dL (0.2-1); CALCIUM 9.6 mg/dL (8.5-10.1); CREATININE 1.2 mg/dL (0.55-1.3); POTASSIUM 4.5 mmol/L (3.5-5.1); TOT PROT 7.3 g/dl (6.4-8.2)
[2018-07-14] MEDS: chlordiazePOXIDE HCL 25 MG CAPSULE PO SCH ×2 (17:41→22:07)
[2018-07-14 18:27] LABS: URINE APPEARANCE TURBID; URINE BILIRUBIN NEGATIVE (NEGATIVE); URINE COLOR YELLOW; URINE GLUCOSE (UA) NEGATIVE (NEGATIVE); URINE KETONE TRACE (NEGATIVE); URINE LEUK ESTERASE NEGATIVE (NEGATIVE); URINE NITRITE NEGATIVE (NEGATIVE); URINE PROTEIN NEGATIVE (NEGATIVE)
[2018-07-14] MEDS: THIAMINE HCL 100 MG TABLET (FP) PO SCH (22:07)
[2018-07-14] MEDS: MELATONIN 5 MG TABLETS PO PRN (22:08)
[2018-07-15] MEDS: chlordiazePOXIDE HCL 25 MG CAPSULE PO SCH ×4 (06:00→22:35)
[2018-07-15] MEDS: chlordiazePOXIDE HCL 25 MG CAPSULE PO PRN (08:34)
[2018-07-15] MEDS: PRENATAL VITAMINS W/ FOLIC ACID TABLET (FP) PO SCH (10:30)
--- NOTE | 2018-07-15 13:32 | PN ---
S CIWA - CIWA Score Nausea/Vomitin-Mild Nausea/No Vomiting Muscle Tremors: 2 Anxiety: 1-Mildly Anxious Agitation: 1-Slight > Activity Paroxysmal Sweats: 1-Minimal Palms Moist Orientation: 0-Oriented Tacttile Disturbances: 0-None Auditory Disturbances: 0-None Visual Disturbances: 0-None Headache: 0-None Present CIWA-Ar Total Score: 6 BHS Progress Note (SOAP) Subjective: S: here for alcohol detox O: Laboratory Tests 07/14/18 07/14/18 07/14/18 14:00 14:00 14:00 WBC 4.6 RBC 5.28 Hgb 15.9 Hct 49.2 H MCV 93.2 MCH 30.0 MCHC 32.2 RDW 13.7 Plt Count 276 MPV 8.8 Sodium 138 Potassium 4.5 Chloride 103 Carbon Dioxide 30 Anion Gap 5 L BUN 22 H Creatinine 1.2 Est GFR (CKD-EPI)AfAm 81.23 Est GFR (CKD-EPI)NonAf 70.09 Random Glucose 58 L Calcium 9.6 Total Bilirubin 0.5 AST 35 ALT 31 Alkaline Phosphatase 95 Total Protein 7.3 Albumin 3.9 Urine Color Urine Appearance Urine pH Ur Specific [place] Urine Protein Urine Glucose (UA) Urine Ketones Urine Blood Urine Nitrite Urine Bilirubin Urine Urobilinogen Ur Leukocyte Esterase RPR Titer Nonreactive 07/14/18 14:00 WBC RBC Hgb Hct MCV MCH MCHC RDW Plt Count MPV Sodium Potassium Chloride Carbon Dioxide Anion Gap BUN Creatinine Est GFR (CKD-EPI)AfAm Est GFR (CKD-EPI)NonAf Random Glucose Calcium Total Bilirubin AST ALT Alkaline Phosphatase Total Protein Albumin Urine Color Yellow Urine Appearance Turbid Urine pH 6.0 Ur Specific [place] 1.039 H Urine Protein Negative Urine Glucose (UA) Negative Urine Ketones Trace H Urine Blood Negative Urine Nitrite Negative Urine Bilirubin Negative Urine Urobilinogen 1.0 Ur Leukocyte Esterase Negative RPR Titer Vital Signs - 24 hr 07/14/18 07/14/18 07/14/18 15:14 16:40 21:34 Temperature 97.2 F L 97.8 F 97.9 F Pulse Rate 67 69 87 Respiratory 18 18 19 Rate Blood Pressure 139/87 138/84 125/84 07/15/18 07/15/18 07/15/18 03:30 06:34 09:00 Temperature 97.3 F L 97.7 F Pulse Rate 76 86 Respiratory 18 16 18 Rate Blood Pressure 107/65 117/68 07/15/18 13:06 Temperature 99.1 F Pulse Rate 82 Respiratory 19 Rate Blood Pressure 118/71 a/p: continue alcohol detox protocol- pt doing well
[2018-07-15] MEDS: THIAMINE HCL 100 MG TABLET (FP) PO SCH (21:55)
[2018-07-15] MEDS: MELATONIN 5 MG TABLETS PO PRN (21:55)
[2018-07-16] MEDS: chlordiazePOXIDE HCL 25 MG CAPSULE PO SCH ×2 (05:10→10:19)
--- NOTE | 2018-07-16 09:25 | PN ---
S CIWA - CIWA Score Nausea/Vomitin-No Nausea/No Vomiting Muscle Tremors: 2 Anxiety: 1-Mildly Anxious Agitation: 0-Normal Activity Paroxysmal Sweats: 2 Orientation: 0-Oriented Tacttile Disturbances: 1-Very Mild Itch/Numbness Auditory Disturbances: 0-None Visual Disturbances: 0-None Headache: 0-None Present CIWA-Ar Total Score: 6 BHS Progress Note (SOAP) Subjective: c/o sweats, anxiety, and interrupted sleep. Objective: 07/16/18 09:20 Vital Signs 07/16/18 07/16/18 06:00 09:14 Temperature 97.2 F L 97.9 F Pulse Rate 82 80 Respiratory 18 18 Rate Blood Pressure 118/80 118/80 Lab Results WBC 4.6 K/mm3 (4.0-10.0) 07/14/18 14:00 RBC 5.28 M/mm3 (4.00-5.60) 07/14/18 14:00 Hgb 15.9 GM/dL (11.7-16.9) 07/14/18 14:00 Hct 49.2 % (35.4-49) H 07/14/18 14:00 MCV 93.2 fl (80-96) 07/14/18 14:00 MCHC 32.2 g/dl (32.0-35.9) 07/14/18 14:00 RDW 13.7 % (11.9-15.9) 07/14/18 14:00 Plt Count 276 K/MM3 (134-434) 07/14/18 14:00 Sodium 138 mmol/L (136-145) 07/14/18 14:00 Potassium 4.5 mmol/L (3.5-5.1) 07/14/18 14:00 Chloride 103 mmol/L (98-107) 07/14/18 14:00 Carbon Dioxide 30 mmol/L (21-32) 07/14/18 14:00 Anion Gap 5 MMOL/L (8-16) L 07/14/18 14:00 BUN 22 mg/dL (7-18) H 07/14/18 14:00 Creatinine 1.2 mg/dL (0.55-1.3) 07/14/18 14:00 Random Glucose 58 mg/dL (74-106) L 07/14/18 14:00 Calcium 9.6 mg/dL (8.5-10.1) 07/14/18 14:00 Labs noted. Assessment: 07/16/18 09:21 AOx3, in no respiratory distress Full ROM, ambulating in the unit. Plan: Continue detox increase fluids
[2018-07-16] MEDS: PRENATAL VITAMINS W/ FOLIC ACID TABLET (FP) PO SCH (10:19)
[2018-07-16] MEDS ORDERED: chlordiazePOXIDE HCL 10 MG CAPSULE PO PRN (17:00)
[2018-07-16] MEDS: chlordiazePOXIDE HCL 10 MG CAPSULE PO SCH ×2 (18:00→22:02)
[2018-07-16] MEDS: hydrOXYzine PAMOATE 25 MG CAPSULE (FP) PO PRN (20:40)
[2018-07-16] MEDS: THIAMINE HCL 100 MG TABLET (FP) PO SCH (22:02)
[2018-07-16] MEDS: MELATONIN 5 MG TABLETS PO PRN (22:02)
[2018-07-17] MEDS: chlordiazePOXIDE HCL 10 MG CAPSULE PO SCH ×3 (05:40→18:23)
[2018-07-17] MEDS: PRENATAL VITAMINS W/ FOLIC ACID TABLET (FP) PO SCH (10:34)
--- NOTE | 2018-07-17 12:20 | PN ---
[facility] CIWA - CIWA Score Nausea/Vomitin-Mild Nausea/No Vomiting Muscle Tremors: 2 Anxiety: 2 Agitation: 2 Paroxysmal Sweats: 2 Orientation: 0-Oriented Tacttile Disturbances: 0-None Auditory Disturbances: 0-None Visual Disturbances: 0-None Headache: 0-None Present CIWA-Ar Total Score: 9 BHS Progress Note (SOAP) Subjective: Stomach cramps, diarrhea, headache (5/10) Objective: 07/17/18 12:17 Last Vital Signs Temp Pulse Resp BP Pulse Ox 98.1 F 99 H 18 129/72 07/17/18 09:37 07/17/18 09:37 07/17/18 09:37 07/17/18 09:37 Laboratory Tests 07/14/18 07/14/18 07/14/18 14:00 14:00 14:00 WBC 4.6 RBC 5.28 Hgb 15.9 Hct 49.2 H MCV 93.2 MCH 30.0 MCHC 32.2 RDW 13.7 Plt Count 276 MPV 8.8 Sodium 138 Potassium 4.5 Chloride 103 Carbon Dioxide 30 Anion Gap 5 L BUN 22 H Creatinine 1.2 Est GFR (CKD-EPI)AfAm 81.23 Est GFR (CKD-EPI)NonAf 70.09 Random Glucose 58 L Calcium 9.6 Total Bilirubin 0.5 AST 35 ALT 31 Alkaline Phosphatase 95 Total Protein 7.3 Albumin 3.9 Urine Color Urine Appearance Urine pH Ur Specific [place] Urine Protein Urine Glucose (UA) Urine Ketones Urine Blood Urine Nitrite Urine Bilirubin Urine Urobilinogen Ur Leukocyte Esterase RPR Titer Nonreactive 07/14/18 14:00 WBC RBC Hgb Hct MCV MCH MCHC RDW Plt Count MPV Sodium Potassium Chloride Carbon Dioxide Anion Gap BUN Creatinine Est GFR (CKD-EPI)AfAm Est GFR (CKD-EPI)NonAf Random Glucose Calcium Total Bilirubin AST ALT Alkaline Phosphatase Total Protein Albumin Urine Color Yellow Urine Appearance Turbid Urine pH 6.0 Ur Specific [place] 1.039 H Urine Protein Negative Urine Glucose (UA) Negative Urine Ketones Trace H Urine Blood Negative Urine Nitrite Negative Urine Bilirubin Negative Urine Urobilinogen 1.0 Ur Leukocyte Esterase Negative RPR Titer Labs reviewed: bun 22 (encouraged PO water hydration) Assessment: 07/17/18 12:19 Withdrawal symptoms Noted with azotemia Plan: Continue detox Azotemia: encouraged PO water hydration
[2018-07-17] MEDS: THIAMINE HCL 100 MG TABLET (FP) PO SCH (22:12)
[2018-07-17] MEDS: MELATONIN 5 MG TABLETS PO PRN (22:12)
[2018-07-17] MEDS: hydrOXYzine PAMOATE 25 MG CAPSULE (FP) PO PRN (22:14)
[2018-07-18] MEDS: chlordiazePOXIDE HCL 10 MG CAPSULE PO SCH ×2 (06:23→17:36)
[2018-07-18] MEDS: PRENATAL VITAMINS W/ FOLIC ACID TABLET (FP) PO SCH (10:08)
[2018-07-18] MEDS: hydrOXYzine PAMOATE 25 MG CAPSULE (FP) PO PRN ×2 (10:09→22:15)
--- NOTE | 2018-07-18 13:27 | PN ---
S CIWA - CIWA Score Nausea/Vomitin-No Nausea/No Vomiting Muscle Tremors: None Anxiety: 2 Agitation: 1-Slight > Activity Paroxysmal Sweats: 2 Orientation: 2-Disoriented Date<2 days Tacttile Disturbances: 0-None Auditory Disturbances: 0-None Visual Disturbances: 0-None Headache: 2-Mild CIWA-Ar Total Score: 9 BHS Progress Note (SOAP) Subjective: Sweating, Constipation, Stomach Cramping, H/A, Interrupted Sleep. Objective: PATIENT A & O X 2 (UNCERTAIN ABOUT CURRENT DAY / DATE). PATIENT OBSERVED AMBULATING ON UNIT UNASSISTED. IN NO ACUTE DISTRESS. 07/18/18 13:25 Vital Signs Temperature 97.9 F 07/18/18 09:21 Pulse Rate 92 H 07/18/18 09:21 Respiratory Rate 18 07/18/18 09:21 Blood Pressure 119/74 07/18/18 09:21 O2 Sat by Pulse Oximetry (%) Laboratory Tests 07/14/18 07/14/18 07/14/18 14:00 14:00 14:00 WBC 4.6 RBC 5.28 Hgb 15.9 Hct 49.2 H MCV 93.2 MCH 30.0 MCHC 32.2 RDW 13.7 Plt Count 276 MPV 8.8 Sodium 138 Potassium 4.5 Chloride 103 Carbon Dioxide 30 Anion Gap 5 L BUN 22 H Creatinine 1.2 Est GFR (CKD-EPI)AfAm 81.23 Est GFR (CKD-EPI)NonAf 70.09 Random Glucose 58 L Calcium 9.6 Total Bilirubin 0.5 AST 35 ALT 31 Alkaline Phosphatase 95 Total Protein 7.3 Albumin 3.9 Urine Color Urine Appearance Urine pH Ur Specific [place] Urine Protein Urine Glucose (UA) Urine Ketones Urine Blood Urine Nitrite Urine Bilirubin Urine Urobilinogen Ur Leukocyte Esterase RPR Titer Nonreactive 07/14/18 14:00 WBC RBC Hgb Hct MCV MCH MCHC RDW Plt Count MPV Sodium Potassium Chloride Carbon Dioxide Anion Gap BUN Creatinine Est GFR (CKD-EPI)AfAm Est GFR (CKD-EPI)NonAf Random Glucose Calcium Total Bilirubin AST ALT Alkaline Phosphatase Total Protein Albumin Urine Color Yellow Urine Appearance Turbid Urine pH 6.0 Ur Specific [place] 1.039 H Urine Protein Negative Urine Glucose (UA) Negative Urine Ketones Trace H Urine Blood Negative Urine Nitrite Negative Urine Bilirubin Negative Urine Urobilinogen 1.0 Ur Leukocyte Esterase Negative RPR Titer LABS NOTED. Assessment: 07/18/18 13:26 WITHDRAWAL SYMPTOMS. Plan: CONTINUE DETOX. INCREASE DAILY PO FLUID / WATER INTAKE. PRN MOM FOR CONSTIPATION. PATIENT SCHEDULED FOR DISCHARGE TOMORROW.
--- NOTE | 2018-07-18 15:31 | PN ---
BHS Progress Note Note: Clonidine, 0.1 mg Po X 1 dose ordered for Withdrawal symptoms. Jing Hernandez GRILL CHEF
[2018-07-18] MEDS ORDERED: cloNIDine HCL 0.1 MG TABLET PO ONE (16:30)
[2018-07-18] MEDS: THIAMINE HCL 100 MG TABLET (FP) PO SCH (22:15)
[2018-07-18] MEDS: MELATONIN 5 MG TABLETS PO PRN (22:15)
--- NOTE | 2018-07-19 08:36 | DS ---
[facility] Detox Discharge Summary Admission Date: 07/14/18 Discharge Date: 07/19/18 - History Present History: Alcohol Dependence, Cocaine Dependence - Physical Exam Results Vital Signs: Vital Signs Temperature 97.5 F L 07/19/18 07:33 Pulse Rate 75 07/19/18 07:33 Respiratory Rate 18 07/19/18 07:33 Blood Pressure 116/61 07/19/18 07:33 O2 Sat by Pulse Oximetry (%) - Treatment Hospital Course: Detox Protocol Followed, Detoxed Safely, Responded well, Discharged Condition Good, Rehab Referral Accepted - Medication Discharge Medications: Ambulatory Orders Albuterol Sulfate Inhaler - [Ventolin HFA Inhaler -] 2 inh IH Q4H PRN #1 inhaler 04/11/18 - Diagnosis (1) Dehydration Current Visit: Yes Status: Acute (2) Weight loss Current Visit: Yes Status: Acute (3) Alcohol dependence with uncomplicated withdrawal Current Visit: Yes Status: Chronic (4) Asthma Current Visit: No Status: Chronic (5) Cocaine dependence Current Visit: Yes Status: Chronic (6) Nicotine dependence Current Visit: Yes Status: Chronic Qualifiers: Nicotine product type: cigarettes Substance use status: uncomplicated Qualified Code(s): F17.210 - Nicotine dependence, cigarettes, uncomplicated - AMA Did Patient Leave Against Medical Advice: No (referred to [facility])
[2018-07-19 09:18] VITALS: BP 130/79; PULSE 83; TEMP 97.7
[2018-07-19] MEDS: PRENATAL VITAMINS W/ FOLIC ACID TABLET (FP) PO SCH (10:25)
== END 2018-07-19 09:37 | disposition home or self-care (01) | DRG 774 ==
LOC: YASAS 12:10 → Y6N 13:48
PROVIDERS: ADMIT Surgery; ATTEND Surgery
PROC: HZ2ZZZZ Detoxification Services for Substance Abuse Treatment (ICD-10-PCS; principal; 2018-07-14)
DX: F10.230 Alcohol dependence with withdrawal, uncomplicated (principal); F14.20 Cocaine dependence, uncomplicated; F17.210 Nicotine dependence, cigarettes, uncomplicated; E86.0 Dehydration; R63.4 Abnormal weight loss; J45.909 Unspecified asthma, uncomplicated; R79.89 Other specified abnormal findings of blood chemistry; Z88.0 Allergy status to penicillin; Z91.013 Allergy to seafood
CPT/HCPCS: 36415; 80053; 81003; 85027; 86593; J0735

== ENCOUNTER 2018-12-07 09:21 | Inpatient (IN) | payer OTHER ==
[2018-12-07 09:54] VITALS: BMI 29.0
--- NOTE | 2018-12-07 10:22 | HP ---
CIWA Score Nausea/Vomitin-Mild Nausea/No Vomiting Muscle Tremors: 3 Anxiety: 2 Agitation: 2 Paroxysmal Sweats: 2 Orientation: 0-Oriented Tacttile Disturbances: 0-None Auditory Disturbances: 0-None Visual Disturbances: 0-None Headache: 3-Moderate (appropriate for alcohol detox) CIWA-Ar Total Score: 13 - Admission Criteria OASAS Guidelines: Admission for Medically Managed Detox: Requires at least one of the followin. CIWA greater than 12 2. Seizures within the past 24 hours 3. Delirium tremens within the past 24 hours 4. Hallucinations within the past 24 hours 5. Acute intervention needed for co occurring medical disorder 6. Acute intervention needed for co occurring psychiatric disorder 7. Severe withdrawal that cannot be handled at a lower level of care (continued vomiting, continued diarrhea, abnormal vital signs) requiring intravenous medication and/or fluids 8. Admitting History and Physical - Admission Chief Complaint: " I need help to get my life back together so I can life a regular life" History of Present Illness: 48 year old black male with history alcohol dependence and cocaine dependence with withdrawals. He is using $150 cocaine daily, last used yesterday. He is using 2.5 pints of alcohol vodka daily, last used yesterday morning. He started using alcohol at the age of 11. He did have blackout 1 year ago and no history of withdrawal siezures. Denies smoking ciggarettes, sporadically. PMH : None PSurg: None Asll: Seafood, PCN + - Smoking History Smoking history: Never smoked Have you smoked in the past 12 months: No Aproximately how many cigarettes per day: 4 - Alcohol/Substance Use Hx Alcohol Use: Yes Admission [facility] Chief Complaint: " I need help to get my life back together so I can life a regular life" Allergies/Adverse Reactions: Allergies Allergy/AdvReac Type Severity Reaction Status Date / Time fish derived Allergy Severe Itching Verified 12/07/18 09:49 Penicillins Allergy Severe Hives Verified 12/07/18 09:49 shellfish derived Allergy Severe Itching Verified 12/07/18 09:49 seafood Allergy Severe Itching Uncoded 12/07/18 09:49 History of Present Illness: 1 year old black male with history alcohol dependence and cocaine dependence with withdrawals. He is using $150 cocaine daily, last used yesterday. He is using 2.5 pints of alcohol vodka daily, last used yesterday morning. He started using alcohol at the age of 11. He did have blackout 1 year ago and no history of withdrawal siezures. Denies smoking ciggarettes, sporadically. PMH : None except Asthma but intermittently uses inhaler. Last used inhaler 6 months ago. PSurg: None Psych: None Asll: Seafood, PCN + - Ebola screening Have you traveled outside of the country in the last 21 days: No Have you had contact with anyone from an Ebola affected area: No Have you been sick,other than usual withdrawal symptoms: No Do you have a fever: No - Review of Systems Constitutional: No Symptoms Reported EENT: reports: No Symptoms Reported Respiratory: reports: No Symptoms reported Cardiac: reports: No Symptoms Reported GI: reports: Indigestion, Abdominal cramping : reports: No Symptoms Reported Musculoskeletal: reports: No Symptoms Reported Integumentary: reports: No Symptoms Reported Neuro: reports: No Symptoms reported Endocrine: reports: No Symptoms Reported Hematology: reports: No Symptoms Reported Psychiatric: reports: No Sypmtoms Reported, Judgement Intact, Mood/Affect Appropiate, Orientated x3 Other Systems: Reviewed and Negative Patient History - Patient Medical History Hx Anemia: No Hx Asthma: Yes (on albuterol inhaler) Hx Chronic Obstructive Pulmonary Disease (COPD): No Hx Cancer: No Hx Cardiac Disorders: No Hx Congestive Heart Failure: No Hx Hypertension: No Hx Hypercholesterolemia: No Hx Pacemaker: No HX Cerebrovascular Accident: No Hx Seizures: No Hx Dementia: No Hx Diabetes: No Hx Gastrointestinal Disorders: No Hx Liver Disease: No Hx Genitourinary Disorders: No Hx Sexually Transmitted Disorders: No Hx Renal Disease (ESRD): No Hx Thyroid Disease: No Hx Human Immunodeficiency Virus (HIV): No (last 05/17 negative) Hx Hepatitis C: No Hx Depression: No Hx Suicide Attempt: No Hx Bipolar Disorder: No Hx Schizophrenia: No - Patient Surgical History Past Surgical History: No Hx Neurologic Surgery: No Hx Cataract Extraction: No Hx Cardiac Surgery: No Hx Lung Surgery: No Hx Breast Surgery: No Hx Breast Biopsy: No Hx Abdominal Surgery: No Hx Appendectomy: No Hx Cholecystectomy: No Hx Genitourinary Surgery: No Hx Section: No Hx Orthopedic Surgery: No Anesthesia Reaction: No - PPD History Previous Implant?: Yes Documented Results: Negative w/proof Date: 05/16/18 Results: chest x ray PPD to be Administered?: No - Reproductive History Patient is a Female of Child Bearing Age (11 -55 yrs old): No - Smoking Cessation Smoking history: Never smoked Have you smoked in the past 12 months: No Aproximately how many cigarettes per day: 4 Hx Chewing Tobacco Use: No Initiated information on smoking cessation: No - Substance & Tx. History Hx Alcohol Use: Yes (2.5 pints per day of vodka) Hx Substance Use: Yes Substance Use Type: Cocaine - Substances abused Alcohol Substance route: Oral Frequency: Daily Amount used: VODKA- 3PT/ 6PK- 24OZ CAN Age of first use: 11 Date of last use: 12/06/18 Crack Substance route: Smoking Frequency: 3-6 times per week Amount used: $50-$75 Age of first use: 29 Date of last use: 12/06/18 Admission Physical Exam BHS - Vital Signs Vital Signs: Vital Signs - 24 hr 12/07/18 12/07/18 09:49 10:02 Temperature 97.8 F 97.8 F Pulse Rate 77 77 Respiratory 18 18 Rate Blood Pressure 151/89 151/89 - Physical General Appearance: Yes: Nourished, Moderate Distress HEENTM: Yes: EOMI, Hearing grossly Normal, Normocephalic, DANIELA, Pharynx Normal, Tm's normal Respiratory: Yes: Chest Non-Tender, Lungs Clear, Normal Breath Sounds, No Respiratory Distress, No Accessory Muscle Use Neck: Yes: No masses,lesions,Nodules, Supple, Trachea in good position Breast: Yes: Within Normal Limits Cardiology: Yes: Regular Rhythm, Regular Rate, S1, S2 Abdominal: Yes: Normal Bowel Sounds, Non Tender, Soft, Protuberent Genitourinary: Yes: Within Normal Limits Back: Yes: Within Normal Limits, Normal Inspection Musculoskeletal: Yes: Within Normal Limits, full range of Motion, Gait Steady Extremities: Yes: Normal Capillary Refill, Normal Inspection, Normal Range of Motion, Non-Tender Neurological: Yes: blending tank helper II-XII NML intact, Fully Oriented, Alert, Motor Strength 5/5, Normal Mood/Affect Integumentary: Yes: Normal Color, Warm Lymphatic: Yes: Within Normal Limits - Diagnostic (1) Alcohol dependence with uncomplicated withdrawal Current Visit: Yes Status: Chronic (2) Asthma Current Visit: Yes Status: Chronic (3) Cocaine dependence Current Visit: Yes Status: Chronic Screened but not Admitted - Documentation of Visit Screened but not Admitted: No Breathalyzer - Breathalyzer Breathalyzer: 0 Urine Drug Screen - Test Device Lot number: [id number] Expiration date: 07/29/20 - Control Is test valid?: Yes - Results Drug screen NEGATIVE: No Urine drug screen results: JOSSY-Cocaine Inpatient Rehab Admission - Rehab Decision to Admit Inpatient rehab admission?: No
[2018-12-07] MEDS ORDERED: ACETAMINOPHEN 325 MG TABLET (FP) PO PRN ×2 (10:25)
[2018-12-07] MEDS ORDERED: chlordiazePOXIDE HCL 25 MG CAPSULE PO PRN (10:25)
[2018-12-07] MEDS ORDERED: BISMUTH SUBSALICYLATE 524 MG/30 ML UD PO PRN (10:25)
[2018-12-07] MEDS ORDERED: MELATONIN 5 MG TABLETS PO PRN (10:25)
[2018-12-07] MEDS ORDERED: MAGNESIUM CITRATE 300 ML BOTTLE PO PRN (10:25)
[2018-12-07] MEDS ORDERED: MENTHOL/PHENOL 1 EACH UD MM PRN (10:25)
[2018-12-07] MEDS ORDERED: hydrOXYzine PAMOATE 25 MG CAPSULE (FP) PO PRN (10:25)
[2018-12-07] MEDS ORDERED: MAGNESIUM HYDROX 2400MG/30ML ORAL SUSPENSION 30 ML CUP PO PRN (10:25)
[2018-12-07] MEDS ORDERED: IBUPROFEN 400 MG TABLET (FP) PO PRN (10:25)
[2018-12-07] MEDS ORDERED: METHOCARBAMOL 500 MG TABLET PO PRN (10:25)
[2018-12-07] MEDS ORDERED: MAG HYDROX/AL HYDROX/SIMETH 30 ML UNIT-DOSE CUP PO PRN (10:25)
[2018-12-07] MEDS ORDERED: ALBUTEROL SO4 8 GM HFA INHALER IH PRN (10:27)
[2018-12-07] MEDS: chlordiazePOXIDE HCL 25 MG CAPSULE PO SCH ×3 (11:23→22:13)
[2018-12-07 12:00] LABS: HEMATOCRIT 47.5 % (35.4-49); HEMOGLOBIN 16.1 GM/dL (11.7-16.9); MCH 30.4 pg (25.7-33.7); MCHC 33.8 g/dl (32.0-35.9); MEAN CELL VOLUME 89.9 fl (80-96); MEAN PLT VOLUME 9.3 fl (7.5-11.1); PLATELET COUNT 244 K/MM3 (134-434); RBC 5.28 M/mm3 (4.00-5.60); RDW 12.4 % (11.9-15.9); WHITE BLOOD COUNT 4.8 K/mm3 (4.0-10.0)
[2018-12-07 13:19] LABS: ALBUMIN 3.7 g/dl (3.4-5.0); BILIRUBIN,TOTAL 0.4 mg/dL (0.2-1); BLOOD UREA NITROGEN 15.4 mg/dL (7-18); CALCIUM 8.9 mg/dL (8.5-10.1); CREATININE 1.3 mg/dL (0.55-1.3); POTASSIUM 4.4 mmol/L (3.5-5.1); TOT PROT 6.9 g/dl (6.4-8.2)
[2018-12-07] MEDS: THIAMINE HCL 100 MG TABLET (FP) PO SCH (22:13)
[2018-12-08] MEDS: chlordiazePOXIDE HCL 25 MG CAPSULE PO SCH ×4 (06:22→22:50)
[2018-12-08] MEDS: PRENATAL VITAMINS W/ FOLIC ACID TABLET (FP) PO SCH (10:12)
--- NOTE | 2018-12-08 14:31 | PN ---
S CIWA - CIWA Score Nausea/Vomitin Muscle Tremors: 3 Anxiety: 3 Agitation: 2 Paroxysmal Sweats: No Perspiration Orientation: 0-Oriented Tacttile Disturbances: 1-Very Mild Itch/Numbness Auditory Disturbances: 1-Very Mild Visual Disturbances: 0-None Headache: 0-None Present CIWA-Ar Total Score: 12 BHS Progress Note (SOAP) Subjective: Nausea, Tremors, Anxious. Objective: PATIENT A & O X 3, OBSERVED AMBULATING ON DETOX UNIT UNASSISTED. IN NO ACUTE DISTRESS. 12/08/18 14:32 Vital Signs Temperature 97.6 F 12/08/18 14:08 Pulse Rate 81 12/08/18 14:08 Respiratory Rate 18 12/08/18 14:08 Blood Pressure 126/75 12/08/18 14:08 O2 Sat by Pulse Oximetry (%) Laboratory Tests 12/07/18 12/07/18 12/07/18 10:30 10:30 10:30 WBC 4.8 RBC 5.28 Hgb 16.1 Hct 47.5 MCV 89.9 MCH 30.4 MCHC 33.8 RDW 12.4 Plt Count 244 MPV 9.3 Sodium 142 Potassium 4.4 Chloride 107 Carbon Dioxide 29 Anion Gap 6 L BUN 15.4 Creatinine 1.3 Est GFR (CKD-EPI)AfAm 73.74 Est GFR (CKD-EPI)NonAf 63.62 Random Glucose 73 L Calcium 8.9 Total Bilirubin 0.4 AST 29 ALT 35 Alkaline Phosphatase 107 Total Protein 6.9 Albumin 3.7 RPR Titer Nonreactive LABS NOTED. Assessment: 12/08/18 14:32 WITHDRAWAL SYMPTOMS. Plan: CONTINUE DETOX.
[2018-12-08] MEDS: THIAMINE HCL 100 MG TABLET (FP) PO SCH (22:50)
[2018-12-09 06:03] VITALS: BP 117/71; PULSE 81; TEMP 97
[2018-12-09] MEDS: chlordiazePOXIDE HCL 25 MG CAPSULE PO SCH ×2 (06:32→10:19)
--- NOTE | 2018-12-09 10:11 | DS ---
[facility] Detox Discharge Summary Admission Date: 12/07/18 - History Present History: Alcohol Dependence, Cocaine Dependence - Physical Exam Results Vital Signs: Vital Signs Temperature 97.0 F L 12/09/18 06:03 Pulse Rate 81 12/09/18 06:03 Respiratory Rate 18 12/09/18 06:03 Blood Pressure 117/71 12/09/18 06:03 O2 Sat by Pulse Oximetry (%) - Medication Discharge Medications: Ambulatory Orders Albuterol Sulfate Inhaler - [Ventolin HFA Inhaler -] 2 inh IH Q4H PRN #1 inhaler 04/11/18 - Diagnosis (1) Alcohol dependence with uncomplicated withdrawal Current Visit: Yes Status: Chronic (2) Asthma Current Visit: Yes Status: Chronic (3) Cocaine dependence Current Visit: Yes Status: Chronic (4) Nicotine dependence Current Visit: Yes Status: Chronic Qualifiers: Nicotine product type: cigarettes Substance use status: uncomplicated Qualified Code(s): F17.210 - Nicotine dependence, cigarettes, uncomplicated - AMA Did Patient Leave Against Medical Advice: Yes (Pt stated " i don't weant to stay here any longer")
[2018-12-09] MEDS: PRENATAL VITAMINS W/ FOLIC ACID TABLET (FP) PO SCH (10:19)
[2018-12-10] MEDS ORDERED: chlordiazePOXIDE HCL 10 MG CAPSULE PO PRN
[2018-12-10] MEDS ORDERED: chlordiazePOXIDE HCL 10 MG CAPSULE PO SCH (05:00)
[2018-12-11] MEDS ORDERED: chlordiazePOXIDE HCL 10 MG CAPSULE PO SCH (05:00)
[2018-12-12] MEDS ORDERED: chlordiazePOXIDE HCL 10 MG CAPSULE PO ONE (05:00)
== END 2018-12-09 09:22 | disposition left against medical advice (07) | DRG 770 ==
LOC: YASAS 09:21 → Y3N 10:19
PROVIDERS: ADMIT Allergy & Immunology; ATTEND Allergy & Immunology
PROC: HZ2ZZZZ Detoxification Services for Substance Abuse Treatment (ICD-10-PCS; principal; 2018-12-07)
DX: F10.230 Alcohol dependence with withdrawal, uncomplicated (principal); F14.20 Cocaine dependence, uncomplicated; F17.210 Nicotine dependence, cigarettes, uncomplicated; J45.909 Unspecified asthma, uncomplicated; Z88.0 Allergy status to penicillin; Z91.013 Allergy to seafood
CPT/HCPCS: 36415; 80053; 85027; 86593

== ENCOUNTER 2019-02-20 09:11 | Inpatient (IN) | payer OTHER ==
[2019-02-20 09:34] VITALS: BMI 38.2
--- NOTE | 2019-02-20 10:02 | HP ---
CIWA Score Nausea/Vomitin-Int. Nausea w/Dry Heave Muscle Tremors: 1-None Visible, but [place] Anxiety: 3 Agitation: 3 Paroxysmal Sweats: No Perspiration Orientation: 0-Oriented Tacttile Disturbances: 0-None Auditory Disturbances: 0-None Visual Disturbances: 0-None Headache: 4-Moderately Severe CIWA-Ar Total Score: 15 - Admission Criteria OASAS Guidelines: Admission for Medically Managed Detox: Requires at least one of the followin. CIWA greater than 12 2. Seizures within the past 24 hours 3. Delirium tremens within the past 24 hours 4. Hallucinations within the past 24 hours 5. Acute intervention needed for co occurring medical disorder 6. Acute intervention needed for co occurring psychiatric disorder 7. Severe withdrawal that cannot be handled at a lower level of care (continued vomiting, continued diarrhea, abnormal vital signs) requiring intravenous medication and/or fluids 8. Admitting History and Physical - Admission Chief Complaint: " I want to try on more time to complete detox and rehab." History of Present Illness: 48 year old black male with history alcohol dependence and cocaine dependence with withdrawals. He is using $150 cocaine daily, last used yesterday. He is using 2.5 pints of alcohol vodka daily, last used yesterday morning. He started using alcohol at the age of 11. He did have blackout 1 week ago and no history of withdrawal seizures. He was here in november 2018 and was only here for 3 days and did not complete detox. He has agreed to sign a behavioral contract to demonstrate that he is serious about treatment and completion of treatment. His long-term plan is to explore residential rehabilitation. In june 2018 he did complete detox and subsequently complete detox outside of [facility] but then relapsed again in 11/2018. Denies smoking ciggarettes, sporadically. 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 History of Recent Travel: No Admission ROS S - HPI Allergies/Adverse Reactions: Allergies Allergy/AdvReac Type Severity Reaction Status Date / Time fish derived Allergy Severe Itching Verified 02/20/19 09:39 Penicillins Allergy Severe Hives Verified 02/20/19 09:39 shellfish derived Allergy Severe Itching Verified 02/20/19 09:39 seafood Allergy Severe Itching Uncoded 02/20/19 09:39 Exam Limitations: No Limitations - Ebola screening Have you traveled outside of the country in the last 21 days: No Have you had contact with anyone from an Ebola affected area: No Have you been sick,other than usual withdrawal symptoms: No Do you have a fever: No - Review of Systems Constitutional: Chills EENT: reports: No Symptoms Reported Respiratory: reports: No Symptoms reported Cardiac: reports: No Symptoms Reported GI: reports: Nausea, Abdominal cramping : reports: No Symptoms Reported Musculoskeletal: reports: No Symptoms Reported Integumentary: reports: No Symptoms Reported Neuro: reports: Headache Endocrine: reports: No Symptoms Reported Hematology: reports: No Symptoms Reported Psychiatric: reports: Judgement Intact, Mood/Affect Appropiate, Orientated x3 Other Systems: Reviewed and Negative Patient History - Patient Medical History Hx Anemia: No Hx Asthma: Yes (on albuterol inhaler) Hx Chronic Obstructive Pulmonary Disease (COPD): No Hx Cancer: No Hx Cardiac Disorders: No Hx Congestive Heart Failure: No Hx Hypertension: No Hx Hypercholesterolemia: No Hx Pacemaker: No HX Cerebrovascular Accident: No Hx Seizures: No Hx Dementia: No Hx Diabetes: No Hx Gastrointestinal Disorders: No Hx Liver Disease: No Hx Genitourinary Disorders: No Hx Sexually Transmitted Disorders: No Hx Renal Disease (ESRD): No Hx Thyroid Disease: No Hx Human Immunodeficiency Virus (HIV): No (last 05/17 negative) Hx Hepatitis C: No Hx Depression: No Hx Suicide Attempt: No Hx Bipolar Disorder: No Hx Schizophrenia: No - Patient Surgical History Past Surgical History: No Hx Neurologic Surgery: No Hx Cataract Extraction: No Hx Cardiac Surgery: No Hx Lung Surgery: No Hx Breast Surgery: No Hx Breast Biopsy: No Hx Abdominal Surgery: No Hx Appendectomy: No Hx Cholecystectomy: No Hx Genitourinary Surgery: No Hx Section: No Hx Orthopedic Surgery: No Anesthesia Reaction: No - PPD History Previous Implant?: No Documented Results: Positive w/o proof Implanted On Prior [facility] Admission?: No Date: 12/07/18 Results: negative PPD to be Administered?: No - Smoking Cessation Smoking history: Never smoked Have you smoked in the past 12 months: No Aproximately how many cigarettes per day: 4 Hx Chewing Tobacco Use: No Initiated information on smoking cessation: Yes 'Breaking Loose' booklet given: 02/20/19 - Substance & Tx. History Hx Alcohol Use: Yes (2.5 pints daily) Hx Substance Use: Yes Substance Use Type: Cocaine Hx Substance Use Treatment: Yes - Substances abused Alcohol Substance route: Oral Frequency: Daily Amount used: VODKA- 3PT/ 6PK- 24OZ CAN Age of first use: 11 Date of last use: 02/19/19 Crack Substance route: Smoking Frequency: 3-6 times per week Amount used: $100 Age of first use: 29 Date of last use: 02/18/19 Admission Physical Exam BHS - Vital Signs Vital Signs: Vital Signs - 24 hr 02/20/19 09:21 Temperature 97.3 F L Pulse Rate 78 Respiratory 18 Rate Blood Pressure 148/93 - Physical General Appearance: Yes: Appropriately Dressed, Mild Distress HEENTM: Yes: EOMI, Hearing grossly Normal, Normal ENT Inspection, Normocephalic , Normal Voice, DANIELA, Tm's normal (tonsilar enlargement, right) Respiratory: Yes: Chest Non-Tender, Lungs Clear, Normal Breath Sounds, No Respiratory Distress, No Accessory Muscle Use Neck: Yes: No masses,lesions,Nodules, Supple, Trachea in good position Breast: Yes: Within Normal Limits Cardiology: Yes: Regular Rhythm, Regular Rate, S1, S2 Abdominal: Yes: Normal Bowel Sounds, Non Tender, Flat, Soft Genitourinary: Yes: Within Normal Limits Back: Yes: Normal Inspection Musculoskeletal: Yes: full range of Motion, Gait Steady, Pelvis Stable Extremities: Yes: Normal Capillary Refill, Normal Inspection, Normal Range of Motion, Non-Tender Neurological: Yes: e commerce director II-XII NML intact, Fully Oriented, Alert, Motor Strength 5/5, Normal Mood/Affect, Normal Response Integumentary: Yes: Normal Color, Warm Lymphatic: Yes: Within Normal Limits - Diagnostic (1) Alcohol dependence with uncomplicated withdrawal Current Visit: Yes Status: Chronic (2) Asthma Current Visit: Yes Status: Chronic (3) Cocaine dependence Current Visit: Yes Status: Chronic (4) Nicotine dependence Current Visit: Yes Status: Chronic Qualifiers: Nicotine product type: cigarettes Substance use status: uncomplicated Qualified Code(s): F17.210 - Nicotine dependence, cigarettes, uncomplicated (5) Upper respiratory infection Current Visit: Yes Status: Acute Cleared for Admission [facility] - Detox or Rehab [facility] Level of Care: Medically Managed Detox Regimen/Protocol: Librium Claeared for Rehab Admission: No Screened but not Admitted - Documentation of Visit Screened but not Admitted: No Breathalyzer - Breathalyzer Breathalyzer: 0 Urine Drug Screen - Test Device Lot number: [id number] Expiration date: 07/29/20 - Control Is test valid?: Yes - Results Drug screen NEGATIVE: No Urine drug screen results: JOSSY-Cocaine Inpatient Rehab Admission - Rehab Decision to Admit Inpatient rehab admission?: No
[2019-02-20] MEDS ORDERED: MAGNESIUM HYDROX 2400MG/30ML ORAL SUSPENSION 30 ML CUP PO PRN (10:11)
[2019-02-20] MEDS ORDERED: MAG HYDROX/AL HYDROX/SIMETH 30 ML UNIT-DOSE CUP PO PRN (10:11)
[2019-02-20] MEDS ORDERED: MAGNESIUM CITRATE 300 ML BOTTLE PO PRN (10:11)
[2019-02-20] MEDS ORDERED: ACETAMINOPHEN 325 MG TABLET (FP) PO PRN ×2 (10:11)
[2019-02-20] MEDS ORDERED: IBUPROFEN 400 MG TABLET (FP) PO PRN (10:11)
[2019-02-20] MEDS ORDERED: chlordiazePOXIDE HCL 25 MG CAPSULE PO PRN (10:11)
[2019-02-20] MEDS ORDERED: BISMUTH SUBSALICYLATE 262 MG/15 ML BTL PO PRN (10:11)
[2019-02-20] MEDS ORDERED: METHOCARBAMOL 500 MG TABLET PO PRN (10:11)
[2019-02-20] MEDS ORDERED: ALBUTEROL SO4 8 GM HFA INHALER IH PRN (10:12)
[2019-02-20] MEDS ORDERED: BENZOCAINE/MENTH/CETYLPYRD CL 1 EACH LOZENGE MM PRN (10:14)
[2019-02-20] MEDS: chlordiazePOXIDE HCL 25 MG CAPSULE PO SCH ×3 (12:16→22:14)
[2019-02-20] MEDS: MENTHOL/PHENOL 1 EACH UD MM PRN ×3 (12:18→22:51)
[2019-02-20 13:14] LABS: HEMATOCRIT 47.9 % (35.4-49); MCH 30.6 pg (25.7-33.7); MCHC 33.4 g/dl (32.0-35.9); MEAN CELL VOLUME 91.7 fl (80-96); MEAN PLT VOLUME 9.3 fl (7.5-11.1); PLATELET COUNT 286 K/MM3 (134-434); RBC 5.23 M/mm3 (4.00-5.60); RDW 13.7 % (11.9-15.9); WHITE BLOOD COUNT 4.4 K/mm3 (4.0-10.0)
[2019-02-20 13:56] LABS: ALBUMIN 3.7 g/dl (3.4-5.0); BILIRUBIN,TOTAL 0.7 mg/dL (0.2-1); BLOOD UREA NITROGEN 17.1 mg/dL (7-18); CREATININE 1.2 mg/dL (0.55-1.3); POTASSIUM 3.7 mmol/L (3.5-5.1); TOT PROT 7.1 g/dl (6.4-8.2)
[2019-02-20] MEDS: THIAMINE HCL 100 MG TABLET (FP) PO SCH (22:14)
[2019-02-21] MEDS: chlordiazePOXIDE HCL 25 MG CAPSULE PO SCH ×4 (05:22→22:36)
[2019-02-21] MEDS: PRENATAL VITAMINS W/ FOLIC ACID TABLET (FP) PO SCH (10:28)
--- NOTE | 2019-02-21 10:28 | PN ---
S CIWA - CIWA Score Nausea/Vomitin-No Nausea/No Vomiting Muscle Tremors: 2 Anxiety: 3 Agitation: 0-Normal Activity Paroxysmal Sweats: 3 Orientation: 0-Oriented Tacttile Disturbances: 0-None Auditory Disturbances: 0-None Visual Disturbances: 0-None Headache: 2-Mild CIWA-Ar Total Score: 10 BHS Progress Note (SOAP) Subjective: c/o sweats, anxiety, headache, and shakes. Objective: 02/21/19 10:27 Vital Signs 02/21/19 02/21/19 02/21/19 03:30 06:11 09:04 Temperature 97.0 F L 96.3 F L Pulse Rate 65 120 H Respiratory 18 18 18 Rate Blood Pressure 118/78 129/90 Laboratory Last Values WBC 4.4 K/mm3 (4.0-10.0) 02/20/19 10:25 RBC 5.23 M/mm3 (4.00-5.60) 02/20/19 10:25 Hgb 16.0 GM/dL (11.7-16.9) 02/20/19 10:25 Hct 47.9 % (35.4-49) 02/20/19 10:25 MCV 91.7 fl (80-96) 02/20/19 10:25 MCH 30.6 pg (25.7-33.7) 02/20/19 10:25 MCHC 33.4 g/dl (32.0-35.9) 02/20/19 10:25 RDW 13.7 % (11.9-15.9) D 02/20/19 10:25 Plt Count 286 K/MM3 (134-434) 02/20/19 10:25 MPV 9.3 fl (7.5-11.1) 02/20/19 10:25 Sodium 140 mmol/L (136-145) 02/20/19 10:25 Potassium 3.7 mmol/L (3.5-5.1) 02/20/19 10:25 Chloride 107 mmol/L (98-107) 02/20/19 10:25 Carbon Dioxide 28 mmol/L (21-32) 02/20/19 10:25 Anion Gap 5 MMOL/L (8-16) L 02/20/19 10:25 BUN 17.1 mg/dL (7-18) 02/20/19 10:25 Creatinine 1.2 mg/dL (0.55-1.3) 02/20/19 10:25 Est GFR (CKD-EPI)AfAm 81.23 02/20/19 10:25 Est GFR (CKD-EPI)NonAf 70.09 02/20/19 10:25 Random Glucose 91 mg/dL (74-106) 02/20/19 10:25 Calcium 9.0 mg/dL (8.5-10.1) 02/20/19 10:25 Total Bilirubin 0.7 mg/dL (0.2-1) 02/20/19 10:25 AST 28 U/L (15-37) 02/20/19 10:25 ALT 29 U/L (13-61) 02/20/19 10:25 Alkaline Phosphatase 88 U/L (45-117) 02/20/19 10:25 Total Protein 7.1 g/dl (6.4-8.2) 02/20/19 10:25 Albumin 3.7 g/dl (3.4-5.0) 02/20/19 10:25 RPR Titer Nonreactive (NONREACTIVE) 02/20/19 10:25 HIV 1&2 Antibody Screen Negative 02/20/19 10:25 HIV P24 Antigen Negative 02/20/19 10:25 Labs noted. Assessment: 02/21/19 10:28 AOX3, in no acute respiratory distress. Full ROM, ambulating in the unit. Withdrawal symptoms. Plan: continue detox.
[2019-02-21] MEDS: hydrOXYzine PAMOATE 25 MG CAPSULE (FP) PO PRN (22:37)
[2019-02-21] MEDS: THIAMINE HCL 100 MG TABLET (FP) PO SCH (22:37)
[2019-02-22] MEDS: MELATONIN 5 MG TABLETS PO PRN (00:43)
[2019-02-22] MEDS: chlordiazePOXIDE HCL 25 MG CAPSULE PO SCH ×4 (06:07→22:07)
[2019-02-22] MEDS: PRENATAL VITAMINS W/ FOLIC ACID TABLET (FP) PO SCH (10:40)
--- NOTE | 2019-02-22 10:52 | PN ---
[facility] CIWA - CIWA Score Nausea/Vomitin-Mild Nausea/No Vomiting Muscle Tremors: 3 Anxiety: 2 Agitation: 1-Slight > Activity Paroxysmal Sweats: 2 Orientation: 0-Oriented Tacttile Disturbances: 0-None Auditory Disturbances: 0-None Visual Disturbances: 0-None Headache: 0-None Present CIWA-Ar Total Score: 9 S Progress Note (SOAP) Subjective: 48 years old male admitted on 02/20/19 for alcohol withdrawal sx management treating with librium detox regimen feeling ok today less tremor mild anxiety ate breakfast social with peers in day room discuss aftercare with staff Objective: 02/22/19 10:59 Vital Signs Temperature 97.2 F L 02/22/19 09:07 Pulse Rate 91 H 02/22/19 09:07 Respiratory Rate 18 02/22/19 09:07 Blood Pressure 114/67 02/22/19 09:07 O2 Sat by Pulse Oximetry (%) Laboratory Last Values WBC 4.4 K/mm3 (4.0-10.0) 02/20/19 10:25 RBC 5.23 M/mm3 (4.00-5.60) 02/20/19 10:25 Hgb 16.0 GM/dL (11.7-16.9) 02/20/19 10:25 Hct 47.9 % (35.4-49) 02/20/19 10:25 MCV 91.7 fl (80-96) 02/20/19 10:25 MCH 30.6 pg (25.7-33.7) 02/20/19 10:25 MCHC 33.4 g/dl (32.0-35.9) 02/20/19 10:25 RDW 13.7 % (11.9-15.9) D 02/20/19 10:25 Plt Count 286 K/MM3 (134-434) 02/20/19 10:25 MPV 9.3 fl (7.5-11.1) 02/20/19 10:25 Sodium 140 mmol/L (136-145) 02/20/19 10:25 Potassium 3.7 mmol/L (3.5-5.1) 02/20/19 10:25 Chloride 107 mmol/L (98-107) 02/20/19 10:25 Carbon Dioxide 28 mmol/L (21-32) 02/20/19 10:25 Anion Gap 5 MMOL/L (8-16) L 02/20/19 10:25 BUN 17.1 mg/dL (7-18) 02/20/19 10:25 Creatinine 1.2 mg/dL (0.55-1.3) 02/20/19 10:25 Est GFR (CKD-EPI)AfAm 81.23 02/20/19 10:25 Est GFR (CKD-EPI)NonAf 70.09 02/20/19 10:25 Random Glucose 91 mg/dL (74-106) 02/20/19 10:25 Calcium 9.0 mg/dL (8.5-10.1) 02/20/19 10:25 Total Bilirubin 0.7 mg/dL (0.2-1) 02/20/19 10:25 AST 28 U/L (15-37) 02/20/19 10:25 ALT 29 U/L (13-61) 02/20/19 10:25 Alkaline Phosphatase 88 U/L (45-117) 02/20/19 10:25 Total Protein 7.1 g/dl (6.4-8.2) 02/20/19 10:25 Albumin 3.7 g/dl (3.4-5.0) 02/20/19 10:25 RPR Titer Nonreactive (NONREACTIVE) 02/20/19 10:25 HIV 1&2 Antibody Screen Negative 02/20/19 10:25 HIV P24 Antigen Negative 02/20/19 10:25 lab noted Assessment: 02/22/19 10:59 alcohol withdrawal Plan: librium regimen
[2019-02-22] MEDS: THIAMINE HCL 100 MG TABLET (FP) PO SCH (22:07)
[2019-02-22] MEDS: hydrOXYzine PAMOATE 25 MG CAPSULE (FP) PO PRN (22:08)
[2019-02-23] MEDS ORDERED: chlordiazePOXIDE HCL 10 MG CAPSULE PO PRN
[2019-02-23] MEDS: chlordiazePOXIDE HCL 10 MG CAPSULE PO SCH ×4 (06:03→22:02)
--- NOTE | 2019-02-23 09:27 | PN ---
S CIWA - CIWA Score Nausea/Vomitin-No Nausea/No Vomiting Muscle Tremors: None Anxiety: 2 Agitation: 0-Normal Activity Paroxysmal Sweats: 3 Orientation: 0-Oriented Tacttile Disturbances: 0-None Auditory Disturbances: 0-None Visual Disturbances: 0-None Headache: 2-Mild CIWA-Ar Total Score: 7 BHS Progress Note (SOAP) Subjective: c/o sweats, anxiety, and headache. Objective: 02/23/19 09:26 Vital Signs 02/23/19 02/23/19 02/23/19 03:30 05:56 06:30 Temperature 97.4 F L Pulse Rate 97 H Respiratory 18 18 18 Rate Blood Pressure 118/81 02/23/19 09:13 Temperature 96.3 F L Pulse Rate 104 H Respiratory 18 Rate Blood Pressure 123/83 Laboratory Last Values WBC 4.4 K/mm3 (4.0-10.0) 02/20/19 10:25 RBC 5.23 M/mm3 (4.00-5.60) 02/20/19 10:25 Hgb 16.0 GM/dL (11.7-16.9) 02/20/19 10:25 Hct 47.9 % (35.4-49) 02/20/19 10:25 MCV 91.7 fl (80-96) 02/20/19 10:25 MCH 30.6 pg (25.7-33.7) 02/20/19 10:25 MCHC 33.4 g/dl (32.0-35.9) 02/20/19 10:25 RDW 13.7 % (11.9-15.9) D 02/20/19 10:25 Plt Count 286 K/MM3 (134-434) 02/20/19 10:25 MPV 9.3 fl (7.5-11.1) 02/20/19 10:25 Sodium 140 mmol/L (136-145) 02/20/19 10:25 Potassium 3.7 mmol/L (3.5-5.1) 02/20/19 10:25 Chloride 107 mmol/L (98-107) 02/20/19 10:25 Carbon Dioxide 28 mmol/L (21-32) 02/20/19 10:25 Anion Gap 5 MMOL/L (8-16) L 02/20/19 10:25 BUN 17.1 mg/dL (7-18) 02/20/19 10:25 Creatinine 1.2 mg/dL (0.55-1.3) 02/20/19 10:25 Est GFR (CKD-EPI)AfAm 81.23 02/20/19 10:25 Est GFR (CKD-EPI)NonAf 70.09 02/20/19 10:25 Random Glucose 91 mg/dL (74-106) 02/20/19 10:25 Calcium 9.0 mg/dL (8.5-10.1) 02/20/19 10:25 Total Bilirubin 0.7 mg/dL (0.2-1) 02/20/19 10:25 AST 28 U/L (15-37) 02/20/19 10:25 ALT 29 U/L (13-61) 02/20/19 10:25 Alkaline Phosphatase 88 U/L (45-117) 02/20/19 10:25 Total Protein 7.1 g/dl (6.4-8.2) 02/20/19 10:25 Albumin 3.7 g/dl (3.4-5.0) 02/20/19 10:25 RPR Titer Nonreactive (NONREACTIVE) 02/20/19 10:25 HIV 1&2 Antibody Screen Negative 02/20/19 10:25 HIV P24 Antigen Negative 02/20/19 10:25 Labs noted. Assessment: 02/23/19 09:27 AOX3, in no acute respiratory distress. Full ROM, ambulating in the unit. Withdrawal symptoms. Plan: continue detox.
[2019-02-23] MEDS: PRENATAL VITAMINS W/ FOLIC ACID TABLET (FP) PO SCH (10:48)
[2019-02-23] MEDS: THIAMINE HCL 100 MG TABLET (FP) PO SCH (22:02)
[2019-02-23] MEDS: MELATONIN 5 MG TABLETS PO PRN (22:02)
[2019-02-24] MEDS: chlordiazePOXIDE HCL 10 MG CAPSULE PO SCH ×2 (05:20→18:25)
--- NOTE | 2019-02-24 10:02 | PN ---
S CIWA - CIWA Score Nausea/Vomitin-No Nausea/No Vomiting Muscle Tremors: None Anxiety: 2 Agitation: 0-Normal Activity Paroxysmal Sweats: 1-Minimal Palms Moist Orientation: 0-Oriented Tacttile Disturbances: 0-None Auditory Disturbances: 0-None Visual Disturbances: 0-None Headache: 0-None Present CIWA-Ar Total Score: 3 BHS Progress Note (SOAP) Subjective: c/o mild withdrawal symptoms. Objective: 02/24/19 10:00 Vital Signs 02/24/19 02/24/19 02/24/19 03:30 06:06 09:11 Temperature 96.7 F L 97.1 F L Pulse Rate 90 75 Respiratory 18 18 17 Rate Blood Pressure 130/74 105/62 Assessment: 02/24/19 10:00 AOX3, in no acute respiratory distress. Full ROM, ambulating in the unit. Mild Withdrawal symptoms. For d/c tomorrow. 02/24/19 10:01 Plan: continue detox. D/C in AM.
[2019-02-24] MEDS: PRENATAL VITAMINS W/ FOLIC ACID TABLET (FP) PO SCH (10:23)
[2019-02-24] MEDS: MELATONIN 5 MG TABLETS PO PRN (22:25)
[2019-02-24] MEDS: THIAMINE HCL 100 MG TABLET (FP) PO SCH (22:25)
[2019-02-25] MEDS ORDERED: chlordiazePOXIDE HCL 10 MG CAPSULE PO ONE (05:00)
[2019-02-25 06:37] VITALS: PULSE 74
[2019-02-25 09:19] VITALS: BP 124/78; TEMP 96.5
[2019-02-25] MEDS: PRENATAL VITAMINS W/ FOLIC ACID TABLET (FP) PO SCH (10:43)
--- NOTE | 2019-02-25 13:09 | DS ---
[facility] Detox Discharge Summary Admission Date: 02/20/19 Discharge Date: 02/25/19 - History Present History: Alcohol Dependence, Cocaine Dependence Additional Comments: Pt is medically cleared and discharged today. Pt has completed the detox protocol and is discharged to [facility] for continued management. Pt is encouraged to follow through with the rehab protocol. Pt verbalized understanding of the information given. Pt is alert and oriented x3 and in no respiratory distress. Pertinent Past History: h/o asthma, alcohol, and cocaine use disorder. - Physical Exam Results Vital Signs: Vital Signs Temperature 96.5 F L 02/25/19 09:18 Pulse Rate 74 02/25/19 09:18 Respiratory Rate 18 02/25/19 09:18 Blood Pressure 124/78 02/25/19 09:18 O2 Sat by Pulse Oximetry (%) Vital Signs 02/25/19 02/25/19 06:37 09:18 Temperature 96.9 F L 96.5 F L Pulse Rate 74 74 Respiratory 18 18 Rate Blood Pressure 110/66 124/78 Laboratory Last Values WBC 4.4 K/mm3 (4.0-10.0) 02/20/19 10:25 RBC 5.23 M/mm3 (4.00-5.60) 02/20/19 10:25 Hgb 16.0 GM/dL (11.7-16.9) 02/20/19 10:25 Hct 47.9 % (35.4-49) 02/20/19 10:25 MCV 91.7 fl (80-96) 02/20/19 10:25 MCH 30.6 pg (25.7-33.7) 02/20/19 10:25 MCHC 33.4 g/dl (32.0-35.9) 02/20/19 10:25 RDW 13.7 % (11.9-15.9) D 02/20/19 10:25 Plt Count 286 K/MM3 (134-434) 02/20/19 10:25 MPV 9.3 fl (7.5-11.1) 02/20/19 10:25 Sodium 140 mmol/L (136-145) 02/20/19 10:25 Potassium 3.7 mmol/L (3.5-5.1) 02/20/19 10:25 Chloride 107 mmol/L (98-107) 02/20/19 10:25 Carbon Dioxide 28 mmol/L (21-32) 02/20/19 10:25 Anion Gap 5 MMOL/L (8-16) L 02/20/19 10:25 BUN 17.1 mg/dL (7-18) 02/20/19 10:25 Creatinine 1.2 mg/dL (0.55-1.3) 02/20/19 10:25 Est GFR (CKD-EPI)AfAm 81.23 02/20/19 10:25 Est GFR (CKD-EPI)NonAf 70.09 02/20/19 10:25 Random Glucose 91 mg/dL (74-106) 02/20/19 10:25 Calcium 9.0 mg/dL (8.5-10.1) 02/20/19 10:25 Total Bilirubin 0.7 mg/dL (0.2-1) 02/20/19 10:25 AST 28 U/L (15-37) 02/20/19 10:25 ALT 29 U/L (13-61) 02/20/19 10:25 Alkaline Phosphatase 88 U/L (45-117) 02/20/19 10:25 Total Protein 7.1 g/dl (6.4-8.2) 02/20/19 10:25 Albumin 3.7 g/dl (3.4-5.0) 02/20/19 10:25 RPR Titer Nonreactive (NONREACTIVE) 02/20/19 10:25 HIV 1&2 Antibody Screen Negative 02/20/19 10:25 HIV P24 Antigen Negative 02/20/19 10:25 Labs noted. Pertinent Admission Physical Exam Findings: withdrawal symptoms. - Treatment Hospital Course: Detox Protocol Followed, Detoxed Safely, Responded well, Discharged Condition Good, Rehab Referral Accepted Patient has Accepted a Rehab Referral to: [facility] - Medication Discharge Medications: Ambulatory Orders Albuterol Sulfate Inhaler - [Ventolin HFA Inhaler -] 2 inh IH Q4H PRN #1 inhaler 04/11/18 - Diagnosis (1) Alcohol dependence with uncomplicated withdrawal Status: Chronic (2) Asthma Status: Chronic (3) Cocaine dependence Status: Chronic (4) Nicotine dependence Status: Chronic Qualifiers: Nicotine product type: cigarettes Substance use status: uncomplicated Qualified Code(s): F17.210 - Nicotine dependence, cigarettes, uncomplicated - AMA Did Patient Leave Against Medical Advice: No
== END 2019-02-25 12:30 | disposition home or self-care (01) | DRG 774 ==
LOC: YASAS 09:11 → Y6N 10:28 → Y3N 10:29
PROVIDERS: ADMIT Allergy & Immunology; ATTEND Allergy & Immunology
PROC: HZ2ZZZZ Detoxification Services for Substance Abuse Treatment (ICD-10-PCS; principal; 2019-02-20)
DX: F10.230 Alcohol dependence with withdrawal, uncomplicated (principal); F14.20 Cocaine dependence, uncomplicated; F17.210 Nicotine dependence, cigarettes, uncomplicated; J45.909 Unspecified asthma, uncomplicated; Z88.0 Allergy status to penicillin; Z91.013 Allergy to seafood
CPT/HCPCS: 36415; 71046-TC-FY; 80053; 85027; 86593; 87389

== ENCOUNTER 2019-02-25 12:41 | Inpatient (IN) | payer OTHER ==
--- NOTE | 2019-02-25 13:12 | HP ---
[facility] Rehab Assess/Revision - Admission History Admitted to Rehab from: [facility] Date of Admission to Rehab: 02/25/2019 - Vital signs Vital Signs: stable - Findings Detox History & Physical reviewed: Yes Concur with findings: Yes Inpatient Rehab Admission - Rehab Decision to Admit Inpatient rehab admission?: Yes - Initial Determination Are CD services needed?: Yes Free of communicable disease: Yes Not in need of hospitalization: Yes - Rehab Admission Criteria Previous failed treatment: Yes Poor recovery environment: Yes Comorbidities: Yes Lacks judgement: No Patient is meeting Inpatient Rehab admission criteria:: Yes
[2019-02-25] MEDS ORDERED: hydrOXYzine PAMOATE 25 MG CAPSULE (FP) PO PRN (13:13)
[2019-02-25] MEDS ORDERED: guaiFENesin 200 MG/10 ML 10 ML UNIT-DOSE CUPS PO PRN (13:13)
[2019-02-25] MEDS ORDERED: MAGNESIUM HYDROX 2400MG/30ML ORAL SUSPENSION 30 ML CUP PO PRN (13:13)
[2019-02-25] MEDS ORDERED: P-EPHED 60MG/TRIPROLIDI 2.5MG TABLET PO PRN (13:13)
[2019-02-25] MEDS ORDERED: MENTHOL/PHENOL 1 EACH UD MM PRN (13:13)
[2019-02-25] MEDS ORDERED: LOPERAMIDE HCL 2 MG CAPSULE PO PRN (13:13)
[2019-02-25] MEDS ORDERED: ACETAMINOPHEN 325 MG TABLET (FP) PO PRN (13:13)
[2019-02-25] MEDS ORDERED: MAG HYDROX/AL HYDROX/SIMETH 30 ML UNIT-DOSE CUP PO PRN (13:13)
[2019-02-25] MEDS ORDERED: ALBUTEROL SO4 8 GM HFA INHALER IH PRN (13:15)
[2019-02-25] MEDS: MELATONIN 5 MG TABLETS PO PRN (21:16)
[2019-02-25] MEDS: THIAMINE HCL 100 MG TABLET (FP) PO SCH (21:16)
[2019-02-26] MEDS: PRENATAL VITAMINS W/ FOLIC ACID TABLET (FP) PO SCH (09:54)
[2019-02-26] MEDS: IBUPROFEN 400 MG TABLET (FP) PO PRN ×2 (12:00→21:16)
[2019-02-26] MEDS: MELATONIN 5 MG TABLETS PO PRN (21:16)
[2019-02-26] MEDS: THIAMINE HCL 100 MG TABLET (FP) PO SCH (21:17)
[2019-02-27] MEDS: IBUPROFEN 400 MG TABLET (FP) PO PRN (10:06)
[2019-02-27] MEDS: PRENATAL VITAMINS W/ FOLIC ACID TABLET (FP) PO SCH (10:06)
--- NOTE | 2019-02-27 10:35 | PN ---
[facility] Progress Note Note: Pt is a 49 y/o male with a hx of RANDOLPH admitted to rehab from [address] [place] [address] after detox treatment on 02/25/19. C/o of chronic knee pain--hx arthritis. Reports motrin 400 mg is not all effective and requesting for increased dose. Pt reports he has no primary care provider and goes to the ER when needed. Vital Signs - 24 hr 02/27/19 02/27/19 02/27/19 00:30 03:30 06:56 Temperature 97.1 F L Pulse Rate 67 Respiratory 18 18 18 Rate Blood Pressure 122/82 s/p detox Hx arthritis left knee Maintain safety JOSELUIS bandage to affected knee prn Analgesic balm apply as directed. Increase motrin 600 mg po Q6H prn for pain
[2019-02-27] MEDS: METHYL SALICYLATE/MENTHOL OINT 30 GM TUBE TP SCH ×2 (12:20→21:18)
--- NOTE | 2019-02-27 16:30 | CONSULT ---
[facility] Psychiatric Consult - Data Date of interview: 02/27/19 Admission source: Transfer from [address] [place] [address]. Identifying data: Revisit to [facility] and admission to [address] after detoxification treatment at [address] [place] [address]. RANDOLPH issues : alcohol, cocaine. 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 Substance Abuse History: Discussed with the patient in this interview. Details are cocordant with current [facility] report. As follows : Smoking history: Never smoked. Have you smoked in the past 12 months: No. Aproximately how many cigarettes per day: 4. Hx Chewing Tobacco Use: No. Initiated information on smoking cessation: Yes. 'Breaking Loose' booklet given: 02/20/19. - Substance & Tx. History. Hx Alcohol Use: Yes (2.5 pints daily). Hx Substance Use: Yes. Substance Use Type: Cocaine. Hx Substance Use Treatment: Yes. - Substances abused. Alcohol. Substance route: Oral. Frequency: Daily. Amount used: VODKA- 3PT/ 6PK- 24OZ CAN. Age of first use: 11. Date of last use: 02/19/19. Crack. Substance route: Smoking. Frequency: 3-6 times per week. Amount used: $100. Age of first use: 29. Date of last use: 02/18/19 Medical History: Patient endorses good general health except for complaint of pain in left knee (arthritis). Psychiatric History: Patient denies history of psychiatric hospitalizations, OPD care or suicide attempts. Physical/Sexual Abuse/Trauma History: Patient denies. Additional Comment: Urine drug screen results: JOSSY-Cocaine. Noted. Mental Status Exam - Mental Status Exam Alert and Oriented to: Time, Place, Person Cognitive Function: Good Patient Appearance: Well Groomed Mood: Hopeful, Euthymic Affect: Appropriate, Normal Range Patient Behavior: Appropriate, Cooperative Speech Pattern: Appropriate Voice Loudness: Normal Thought Process: Intact, Goal Oriented Thought Disorder: Not Present Hallucinations: Denies Suicidal Ideation: Denies Homicidal Ideation: Denies Insight/Judgement: Poor Sleep: Poorly, Difficulty falling asleep Appetite: Good Gait/Station: Normal Psychiatric Findings - Problem List ([place] 1, 2,3) (1) Alcohol use disorder Current Visit: Yes Status: Chronic (2) Cocaine dependence Current Visit: Yes Status: Chronic (3) Nicotine dependence Current Visit: Yes Status: Chronic Qualifiers: Nicotine product type: cigarettes Substance use status: uncomplicated Qualified Code(s): F17.210 - Nicotine dependence, cigarettes, uncomplicated (4) Insomnia Current Visit: Yes Status: Chronic - Initial Treatment Plan Initial Treatment Plan: Psychoeducation. Sleep hygiene. Support. MAT services : discussed with patient. Motivational counseling. Mr Swan has requested benadryl at bedtime (declines to take trazodone out of concern for priapism). Side effects/benefits discussed with the patient and consent (verbal) granted to MD. Giraldo.
[2019-02-27] MEDS: THIAMINE HCL 100 MG TABLET (FP) PO SCH (21:15)
[2019-02-27] MEDS: diphenhydrAMINE HCL 50 MG CAPSULE PO PRN (21:17)
[2019-02-28] MEDS: METHYL SALICYLATE/MENTHOL OINT 30 GM TUBE TP SCH ×2 (11:00→21:16)
[2019-02-28] MEDS: PRENATAL VITAMINS W/ FOLIC ACID TABLET (FP) PO SCH (11:00)
[2019-02-28] MEDS: diphenhydrAMINE HCL 50 MG CAPSULE PO PRN (21:15)
[2019-02-28] MEDS: IBUPROFEN 600 MG TABLET (FP) PO PRN (21:15)
[2019-02-28] MEDS: THIAMINE HCL 100 MG TABLET (FP) PO SCH (21:16)
[2019-03-01] MEDS: PRENATAL VITAMINS W/ FOLIC ACID TABLET (FP) PO SCH (11:13)
[2019-03-01] MEDS: METHYL SALICYLATE/MENTHOL OINT 30 GM TUBE TP SCH ×2 (11:13→21:19)
[2019-03-01] MEDS: THIAMINE HCL 100 MG TABLET (FP) PO SCH (21:19)
[2019-03-01] MEDS: IBUPROFEN 600 MG TABLET (FP) PO PRN (21:19)
[2019-03-01] MEDS: diphenhydrAMINE HCL 50 MG CAPSULE PO PRN (21:19)
[2019-03-02] MEDS: PRENATAL VITAMINS W/ FOLIC ACID TABLET (FP) PO SCH (10:48)
[2019-03-02] MEDS: METHYL SALICYLATE/MENTHOL OINT 30 GM TUBE TP SCH ×2 (10:48→21:15)
[2019-03-02] MEDS: IBUPROFEN 600 MG TABLET (FP) PO PRN (21:14)
[2019-03-02] MEDS: diphenhydrAMINE HCL 50 MG CAPSULE PO PRN (21:14)
[2019-03-02] MEDS: THIAMINE HCL 100 MG TABLET (FP) PO SCH (21:15)
[2019-03-03] MEDS: PRENATAL VITAMINS W/ FOLIC ACID TABLET (FP) PO SCH (10:46)
[2019-03-03] MEDS: METHYL SALICYLATE/MENTHOL OINT 30 GM TUBE TP SCH ×2 (10:46→21:19)
[2019-03-03] MEDS: IBUPROFEN 600 MG TABLET (FP) PO PRN (21:18)
[2019-03-03] MEDS: THIAMINE HCL 100 MG TABLET (FP) PO SCH (21:18)
[2019-03-03] MEDS: diphenhydrAMINE HCL 50 MG CAPSULE PO PRN (21:19)
[2019-03-04] MEDS: PRENATAL VITAMINS W/ FOLIC ACID TABLET (FP) PO SCH (11:24)
[2019-03-04] MEDS: METHYL SALICYLATE/MENTHOL OINT 30 GM TUBE TP SCH ×2 (11:24→22:01)
[2019-03-04] MEDS: IBUPROFEN 600 MG TABLET (FP) PO PRN ×2 (15:31→21:09)
[2019-03-04] MEDS: diphenhydrAMINE HCL 50 MG CAPSULE PO PRN (21:08)
[2019-03-04] MEDS: THIAMINE HCL 100 MG TABLET (FP) PO SCH (21:10)
[2019-03-05] MEDS: PRENATAL VITAMINS W/ FOLIC ACID TABLET (FP) PO SCH (10:01)
[2019-03-05] MEDS: METHYL SALICYLATE/MENTHOL OINT 30 GM TUBE TP SCH ×2 (10:01→21:16)
[2019-03-05] MEDS: THIAMINE HCL 100 MG TABLET (FP) PO SCH (21:14)
[2019-03-05] MEDS: diphenhydrAMINE HCL 50 MG CAPSULE PO PRN (21:15)
[2019-03-05] MEDS: IBUPROFEN 600 MG TABLET (FP) PO PRN (21:15)
[2019-03-06] MEDS: PRENATAL VITAMINS W/ FOLIC ACID TABLET (FP) PO SCH (10:16)
[2019-03-06] MEDS: IBUPROFEN 600 MG TABLET (FP) PO PRN ×2 (10:16→21:30)
[2019-03-06] MEDS: METHYL SALICYLATE/MENTHOL OINT 30 GM TUBE TP SCH ×2 (10:17→21:31)
[2019-03-06] MEDS: THIAMINE HCL 100 MG TABLET (FP) PO SCH (21:30)
[2019-03-06] MEDS: diphenhydrAMINE HCL 50 MG CAPSULE PO PRN (21:30)
[2019-03-07] MEDS: METHYL SALICYLATE/MENTHOL OINT 30 GM TUBE TP SCH ×2 (10:31→21:24)
[2019-03-07] MEDS: PRENATAL VITAMINS W/ FOLIC ACID TABLET (FP) PO SCH (10:31)
[2019-03-07] MEDS: IBUPROFEN 600 MG TABLET (FP) PO PRN ×2 (10:31→21:22)
[2019-03-07] MEDS: diphenhydrAMINE HCL 50 MG CAPSULE PO PRN (21:22)
[2019-03-07] MEDS: THIAMINE HCL 100 MG TABLET (FP) PO SCH (21:22)
[2019-03-08] MEDS: METHYL SALICYLATE/MENTHOL OINT 30 GM TUBE TP SCH ×2 (10:27→21:33)
[2019-03-08] MEDS: IBUPROFEN 600 MG TABLET (FP) PO PRN ×2 (10:27→21:32)
[2019-03-08] MEDS: PRENATAL VITAMINS W/ FOLIC ACID TABLET (FP) PO SCH (10:28)
[2019-03-08] MEDS: THIAMINE HCL 100 MG TABLET (FP) PO SCH (21:31)
[2019-03-08] MEDS: diphenhydrAMINE HCL 50 MG CAPSULE PO PRN (21:32)
[2019-03-09 06:54] VITALS: BP 126/81; PULSE 68; TEMP 97.5
--- NOTE | 2019-03-09 08:45 | DS ---
[facility] Rehab Discharge Summary - [facility] Rehab Discharge Summary Admission Date: 02/25/19 Discharge Date: 03/09/19 - History Present History: Alcohol dependence, Cocaine dependence Additional Comments: Pt is a 49 y/o male admitted to rehab for RANDOLPH and scheduled for discharge on 03/09. Pertinent Past History: Asthma - Discharge Physical Exam Vital Signs: Vital Signs Temperature 97.5 F L 03/09/19 06:54 Pulse Rate 68 03/09/19 06:54 Respiratory Rate 18 03/09/19 06:54 Blood Pressure 126/81 03/09/19 06:54 O2 Sat by Pulse Oximetry (%) Alert o x 3, denies s/h/i nad oob ambulating with steady gait cardiac:s1 s2,rrr lungs:cta,angella abdomen:soft,+bs,nt,nd extremities/skin:no edema,skin intact Pertinent Admission Physical Exam Findings: status unchanged. - Treatment Discharge Condition: Discharge condition good Hospital Course: Rehabilitated safely - Medication Discharge Medications: Ambulatory Orders Albuterol Sulfate Inhaler - [Ventolin HFA Inhaler -] 2 inh IH Q4H PRN #1 inhaler 04/11/18 traZODone HCL [Trazodone HCl] 100 mg PO HS 02/25/19 - Medication-Assisted Treatment (MAT) Medication-Assisted Treatment (MAT): No - Discharge Instructions Diet, activity, other medical instructions: Diet:Regular Activity: oob ad maria esther Other medical instructions:follow up with CD aftercare with [facility] follow up with primary care with [facility] within 1 week after discharge or as needed.. - Diagnosis (1) Alcohol use disorder Status: Chronic (2) Asthma Status: Chronic (3) Cocaine dependence Status: Chronic - Follow-up Referral Minutes to complete discharge: 20 - AMA Did Patient Leave Against Medical Advice: No
[2019-03-09] MEDS: IBUPROFEN 600 MG TABLET (FP) PO PRN (08:47)
[2019-03-09] MEDS: PRENATAL VITAMINS W/ FOLIC ACID TABLET (FP) PO SCH (10:02)
[2019-03-09] MEDS: METHYL SALICYLATE/MENTHOL OINT 30 GM TUBE TP SCH (10:02)
== END 2019-03-09 09:55 | disposition other institution (70) | DRG 772 ==
LOC: YASAS 12:41 → Y5N 12:43
PROVIDERS: ADMIT Neuromusculoskeletal Medicine & OMM; ATTEND Neuromusculoskeletal Medicine & OMM
PROC: HZ42ZZZ Group Counseling for Substance Abuse Treatment, Cognitive-Behavioral (ICD-10-PCS; principal; 2019-02-25)
DX: F10.20 Alcohol dependence, uncomplicated (principal); F14.20 Cocaine dependence, uncomplicated; F17.210 Nicotine dependence, cigarettes, uncomplicated; J45.909 Unspecified asthma, uncomplicated; G47.00 Insomnia, unspecified; M13.862 Other specified arthritis, left knee; Z88.0 Allergy status to penicillin; Z91.013 Allergy to seafood

== ENCOUNTER 2021-06-19 10:42 | Inpatient (IN) | payer OTHER ==
[2021-06-19] MEDS ORDERED: P-EPHED 60MG/TRIPROLIDI 2.5MG TABLET PO PRN (12:45)
[2021-06-19] MEDS ORDERED: ACETAMINOPHEN 325 MG TABLET (FP) PO PRN (12:45)
[2021-06-19] MEDS ORDERED: MAGNESIUM HYDROX 2400MG/30ML ORAL SUSPENSION 30 ML CUP PO PRN (12:45)
[2021-06-19] MEDS ORDERED: LOPERAMIDE HCL 2 MG CAPSULE PO PRN (12:45)
[2021-06-19] MEDS ORDERED: MAGNESIUM CITRATE 300 ML BOTTLE PO PRN (12:45)
[2021-06-19] MEDS ORDERED: guaiFENesin 200 MG/10 ML 10 ML UNIT-DOSE CUPS PO PRN (12:45)
[2021-06-19] MEDS ORDERED: NICOTINE 10 MG CARTRIDGE (INHALER) IH PRN (12:45)
[2021-06-19] MEDS ORDERED: ALBUTEROL SO4 HFA INHALER IH PRN (12:48)
[2021-06-19 15:47] VITALS: BMI 25.5
[2021-06-19 17:14] LABS: HEMOGLOBIN 14.8 GM/dL (11.7-16.9); MCHC 32.8 g/dl (32.0-35.9); MEAN CELL VOLUME 88.5 fl (80-96); MEAN PLT VOLUME 9.1 fl (7.5-11.1); PLATELET COUNT 319 10^3/uL (134-434); RBC 5.08 M/mm3 (4.00-5.60); RDW 13.7 % (11.9-15.9); WHITE BLOOD COUNT 5.1 K/mm3 (4.0-10.0)
[2021-06-19] MEDS: PRENATAL VITAMINS W/ FOLIC ACID TABLET (FP) PO SCH (17:27)
[2021-06-19] MEDS: hydrOXYzine PAMOATE 25 MG CAPSULE (FP) PO SCH ×3 (17:27→21:14)
[2021-06-19] MEDS: NICOTINE 7 MG/24 HOURS TOPICAL PATCH TD SCH (17:27)
[2021-06-19] MEDS ORDERED: TUBERCULIN PPD 5 TU/0.1ML VIAL ID ONE (17:30)
[2021-06-19 17:33] LABS: CALCIUM 8.8 mg/dL (8.5-10.1)
[2021-06-19 17:34] LABS: ALBUMIN 3.3 g/dl (3.4-5.0); BLOOD UREA NITROGEN 11.8 mg/dL (7-18)
[2021-06-19 17:37] LABS: CREATININE 0.8 mg/dL (0.55-1.3)
[2021-06-19 17:38] LABS: BILIRUBIN,TOTAL 0.2 mg/dL (0.2-1); TOT PROT 7.4 g/dl (6.4-8.2)
[2021-06-19 17:41] LABS: SYPHILIS W/ RPR CONF NON-REACTIVE (NONREACTIVE)
[2021-06-19] MEDS: THIAMINE HCL 100 MG TABLET (FP) PO SCH (21:13)
[2021-06-19] MEDS: MELATONIN 5 MG TABLETS PO SCH (21:13)
[2021-06-19] MEDS ORDERED: MELATONIN 5 MG TABLETS PO SCH (22:00)
[2021-06-19 23:10] LABS: PH,URINE 6.5 (5.0-8.0); URINE APPEARANCE CLEAR; URINE BILIRUBIN NEGATIVE (NEGATIVE); URINE COLOR YELLOW; URINE GLUCOSE (UA) NEGATIVE (NEGATIVE); URINE KETONE NEGATIVE (NEGATIVE); URINE LEUK ESTERASE NEGATIVE (NEGATIVE); URINE NITRITE NEGATIVE (NEGATIVE); URINE PROTEIN NEGATIVE (NEGATIVE)
[2021-06-20] MEDS: hydrOXYzine PAMOATE 25 MG CAPSULE (FP) PO SCH ×5 (06:41→22:19)
[2021-06-20] MEDS: NICOTINE 7 MG/24 HOURS TOPICAL PATCH TD SCH (09:30)
[2021-06-20] MEDS: PRENATAL VITAMINS W/ FOLIC ACID TABLET (FP) PO SCH (09:30)
[2021-06-20] MEDS: THIAMINE HCL 100 MG TABLET (FP) PO SCH (22:17)
[2021-06-20] MEDS: MELATONIN 5 MG TABLETS PO SCH (22:17)
[2021-06-21] MEDS: hydrOXYzine PAMOATE 25 MG CAPSULE (FP) PO SCH ×5 (05:54→21:39)
[2021-06-21] MEDS: PRENATAL VITAMINS W/ FOLIC ACID TABLET (FP) PO SCH (10:26)
[2021-06-21] MEDS: NICOTINE 7 MG/24 HOURS TOPICAL PATCH TD SCH (10:27)
[2021-06-21] MEDS: MAG HYDROX/AL HYDROX/SIMETH 30 ML UNIT-DOSE CUP PO PRN (12:29)
[2021-06-21] MEDS: MELATONIN 5 MG TABLETS PO SCH (21:38)
[2021-06-21] MEDS: THIAMINE HCL 100 MG TABLET (FP) PO SCH (21:39)
[2021-06-22] MEDS: hydrOXYzine PAMOATE 25 MG CAPSULE (FP) PO SCH ×6 (06:26→21:04)
[2021-06-22] MEDS: NICOTINE 7 MG/24 HOURS TOPICAL PATCH TD SCH (10:38)
[2021-06-22] MEDS: PRENATAL VITAMINS W/ FOLIC ACID TABLET (FP) PO SCH (10:38)
[2021-06-22] MEDS: MAG HYDROX/AL HYDROX/SIMETH 30 ML UNIT-DOSE CUP PO PRN (10:39)
[2021-06-22] MEDS: THIAMINE HCL 100 MG TABLET (FP) PO SCH (21:04)
[2021-06-22] MEDS: MELATONIN 5 MG TABLETS PO SCH (21:04)
[2021-06-23] MEDS: hydrOXYzine PAMOATE 25 MG CAPSULE (FP) PO SCH ×2 (06:50→11:26)
[2021-06-23] MEDS: PRENATAL VITAMINS W/ FOLIC ACID TABLET (FP) PO SCH (09:56)
[2021-06-23] MEDS: NICOTINE 7 MG/24 HOURS TOPICAL PATCH TD SCH (09:56)
[2021-06-23] MEDS: MELATONIN 5 MG TABLETS PO SCH (21:42)
[2021-06-23] MEDS: THIAMINE HCL 100 MG TABLET (FP) PO SCH (21:43)
[2021-06-24 00:06] LABS: SARS-CoV-2 NAA Not Detected (Not Detected)
[2021-06-24] MEDS: PRENATAL VITAMINS W/ FOLIC ACID TABLET (FP) PO SCH (10:13)
[2021-06-24] MEDS: NICOTINE 7 MG/24 HOURS TOPICAL PATCH TD SCH (10:13)
[2021-06-24] MEDS: MELATONIN 5 MG TABLETS PO SCH (21:00)
[2021-06-24] MEDS: THIAMINE HCL 100 MG TABLET (FP) PO SCH (21:00)
[2021-06-25] MEDS: PRENATAL VITAMINS W/ FOLIC ACID TABLET (FP) PO SCH (10:28)
[2021-06-25] MEDS: NICOTINE 7 MG/24 HOURS TOPICAL PATCH TD SCH (10:28)
[2021-06-25] MEDS: THIAMINE HCL 100 MG TABLET (FP) PO SCH (21:27)
[2021-06-25] MEDS: MELATONIN 5 MG TABLETS PO SCH (21:27)
[2021-06-26] MEDS: PRENATAL VITAMINS W/ FOLIC ACID TABLET (FP) PO SCH (10:29)
[2021-06-26] MEDS: NICOTINE 7 MG/24 HOURS TOPICAL PATCH TD SCH (10:29)
[2021-06-26] MEDS: MELATONIN 5 MG TABLETS PO SCH (21:04)
[2021-06-26] MEDS: THIAMINE HCL 100 MG TABLET (FP) PO SCH (21:05)
[2021-06-27] MEDS: PRENATAL VITAMINS W/ FOLIC ACID TABLET (FP) PO SCH (09:44)
[2021-06-27] MEDS: NICOTINE 7 MG/24 HOURS TOPICAL PATCH TD SCH (09:44)
[2021-06-27] MEDS ORDERED: HYDROCORTISONE 1% TOPICAL CREAM 30 GM TUBE TP PRN (14:25)
[2021-06-27] MEDS: THIAMINE HCL 100 MG TABLET (FP) PO SCH (21:25)
[2021-06-27] MEDS: MELATONIN 5 MG TABLETS PO SCH (21:25)
[2021-06-28] MEDS: PRENATAL VITAMINS W/ FOLIC ACID TABLET (FP) PO SCH (09:51)
[2021-06-28] MEDS: IBUPROFEN 400 MG TABLET (FP) PO PRN (09:51)
[2021-06-28] MEDS: NICOTINE 7 MG/24 HOURS TOPICAL PATCH TD SCH (10:18)
[2021-06-28] MEDS: THIAMINE HCL 100 MG TABLET (FP) PO SCH (21:03)
[2021-06-28] MEDS: MELATONIN 5 MG TABLETS PO SCH (21:03)
[2021-06-29] MEDS: PRENATAL VITAMINS W/ FOLIC ACID TABLET (FP) PO SCH (09:49)
[2021-06-29] MEDS: hydrOXYzine PAMOATE 25 MG CAPSULE (FP) PO PRN (09:50)
[2021-06-29] MEDS: NICOTINE 7 MG/24 HOURS TOPICAL PATCH TD SCH (09:50)
[2021-06-29] MEDS: MELATONIN 5 MG TABLETS PO SCH (21:23)
[2021-06-29] MEDS: THIAMINE HCL 100 MG TABLET (FP) PO SCH (21:23)
[2021-06-30] MEDS: PRENATAL VITAMINS W/ FOLIC ACID TABLET (FP) PO SCH (10:42)
[2021-06-30] MEDS: NICOTINE 7 MG/24 HOURS TOPICAL PATCH TD SCH (10:42)
[2021-06-30] MEDS: MELATONIN 5 MG TABLETS PO SCH (21:14)
[2021-06-30] MEDS: THIAMINE HCL 100 MG TABLET (FP) PO SCH (21:14)
[2021-07-01] MEDS: NICOTINE 7 MG/24 HOURS TOPICAL PATCH TD SCH (10:05)
[2021-07-01] MEDS: PRENATAL VITAMINS W/ FOLIC ACID TABLET (FP) PO SCH (10:06)
[2021-07-01] MEDS: MELATONIN 5 MG TABLETS PO SCH (21:04)
[2021-07-01] MEDS: THIAMINE HCL 100 MG TABLET (FP) PO SCH (21:04)
[2021-07-02] MEDS: NICOTINE 7 MG/24 HOURS TOPICAL PATCH TD SCH (10:11)
[2021-07-02] MEDS: PRENATAL VITAMINS W/ FOLIC ACID TABLET (FP) PO SCH (10:12)
[2021-07-02] MEDS: IBUPROFEN 400 MG TABLET (FP) PO PRN (14:54)
[2021-07-02] MEDS: MELATONIN 5 MG TABLETS PO SCH (21:09)
[2021-07-02] MEDS: THIAMINE HCL 100 MG TABLET (FP) PO SCH (21:09)
[2021-07-03] MEDS: hydrOXYzine PAMOATE 25 MG CAPSULE (FP) PO PRN (07:37)
[2021-07-03] MEDS: IBUPROFEN 400 MG TABLET (FP) PO PRN (07:37)
[2021-07-03 08:01] VITALS: BP 140/96; PULSE 81; TEMP 97.8
== END 2021-07-03 08:43 | disposition home or self-care (01) | DRG 772 ==
LOC: YASAS 10:42 → Y3W 15:54
PROVIDERS: ADMIT Allergy & Immunology; ATTEND Allergy & Immunology
PROC: HZ42ZZZ Group Counseling for Substance Abuse Treatment, Cognitive-Behavioral (ICD-10-PCS; principal; 2021-06-19)
DX: F10.20 Alcohol dependence, uncomplicated (principal); F14.20 Cocaine dependence, uncomplicated; F17.210 Nicotine dependence, cigarettes, uncomplicated; F19.282 Other psychoactive substance dependence with psychoactive substance-induced sleep disorder; I10 Essential (primary) hypertension; J45.909 Unspecified asthma, uncomplicated; Z96.652 Presence of left artificial knee joint; Z88.0 Allergy status to penicillin; Z91.013 Allergy to seafood; Z56.0 Unemployment, unspecified
CPT/HCPCS: 36415; 71046-TC-FY; 80053; 81003; 82962; 85027; 86780; 86803; C9803-CS; U0003; U0005

== ENCOUNTER 2024-04-10 13:21 | Inpatient (IN) | payer OTHER ==
[2024-04-10 14:16] VITALS: BMI 27.9
[2024-04-10] MEDS ORDERED: IBUPROFEN 400 MG TABLET (FP) PO PRN (14:17)
[2024-04-10] MEDS ORDERED: POLYETHYLENE GLYCOL (HEALTHYLAX) 3350 17 GM PACKET PO PRN (14:17)
[2024-04-10] MEDS ORDERED: IBUPROFEN 600 MG TABLET (FP) PO PRN (14:17)
[2024-04-10] MEDS ORDERED: NALOXONE (NARCAN) HCL 4 MG/0.1 ML SPRAY NS PRN (14:17)
[2024-04-10] MEDS ORDERED: LOPERAMIDE HCL 2 MG CAPSULE PO PRN (14:17)
[2024-04-10] MEDS ORDERED: MAGNESIUM HYDROX 2400MG/30ML ORAL SUSPENSION 30 ML CUP PO PRN (14:17)
[2024-04-10] MEDS ORDERED: BENZONATATE 200 MG CAPSULE PO PRN (14:17)
[2024-04-10] MEDS ORDERED: guaiFENesin 600 MG TABLET.ER (FP) PO PRN (14:17)
[2024-04-10] MEDS ORDERED: ALBUTEROL SO4 HFA INHALER IH PRN (14:20)
[2024-04-10] MEDS: TAMSULOSIN HCL 0.4 MG CAP PO ONE (18:26)
[2024-04-10] MEDS: THIAMINE 100 MG TABLET PO SCH (21:16)
[2024-04-10] MEDS: MELATONIN 5 MG TABLETS PO SCH (21:19)
[2024-04-10] MEDS: BUPRENORPHINE/NALOXONE 4 MG/1 MG FILM PACKET SL SCH (21:19)
[2024-04-10] MEDS: hydrOXYzine PAMOATE 25 MG CAPSULE (FP) PO PRN (21:21)
[2024-04-10] MEDS: PRENATAL VITAMINS W/ FOLIC ACID TABLET (FP) PO SCH (21:52)
[2024-04-11] MEDS: BUPRENORPHINE/NALOXONE 2 MG/0.5 MG FILM PACKET SL SCH (11:22)
[2024-04-11 11:27] LABS: CHLORIDE 107 mmol/L (98-107); POTASSIUM 4.5 mmol/L (3.5-5.1); SODIUM 142 mmol/L (136-145)
[2024-04-11 11:33] LABS: HEMATOCRIT 40.9 % (35.4-49); HEMOGLOBIN 13.2 GM/dL (11.7-16.9); MCH 28.9 pg (25.7-33.7); MCHC 32.2 g/dl (32.0-35.9); MEAN CELL VOLUME 89.9 fl (80-96); MEAN PLT VOLUME 8.6 fl (7.5-11.1); PLATELET COUNT 346 10^3/uL (134-434); RBC 4.55 M/mm3 (4.00-5.60); RDW 13.3 % (11.9-15.9); WHITE BLOOD COUNT 5.6 K/mm3 (4.0-10.0)
[2024-04-11 11:40] LABS: CALCIUM 8.8 mg/dL (8.5-10.1)
[2024-04-11 11:41] LABS: ALBUMIN 2.8 g/dl (3.4-5.0); ANION GAP 3 mmol/L (4-13); BLOOD UREA NITROGEN 25.2 mg/dL (7-18); CO2 33 mmol/L (21-32); GLUCOSE,RANDOM 96 mg/dL (74-106)
[2024-04-11 11:44] LABS: BILIRUBIN,TOTAL 0.6 mg/dL (0.2-1); SGOT/AST 26 U/L (15-37); SGPT/ALT 39 U/L (13-61)
[2024-04-11 11:45] LABS: ALK PHOS 92 U/L (45-117); TOT PROT 5.7 g/dl (6.4-8.2)
[2024-04-11 11:58] LABS: SYPHILIS W/ RPR CONF NON-REACTIVE (NONREACTIVE)
[2024-04-11] MEDS: FAMOTIDINE 20 MG TABLET PO SCH (12:00)
[2024-04-11 16:55] LABS: PH,URINE 7.5 (5.0-8.0); URINE APPEARANCE CLEAR; URINE BILIRUBIN NEGATIVE (NEGATIVE); URINE COLOR YELLOW; URINE GLUCOSE (UA) NEGATIVE (NEGATIVE); URINE KETONE NEGATIVE (NEGATIVE); URINE LEUK ESTERASE NEGATIVE (NEGATIVE); URINE NITRITE NEGATIVE (NEGATIVE); URINE PROTEIN NEGATIVE (NEGATIVE); URINE UROBILINOGEN 0.2 mg/dL (0.2-1.0)
[2024-04-12] MEDS: TAMSULOSIN HCL 0.4 MG CAP PO SCH (07:38)
[2024-04-12] MEDS: BUPRENORPHINE/NALOXONE 2 MG/0.5 MG FILM PACKET SL SCH (09:51)
[2024-04-12] MEDS ORDERED: LORATADINE 10 MG TABLET PO PRN (11:11)
[2024-04-12] MEDS: LISINOPRIL 20 MG TABLET PO SCH (13:23)
[2024-04-12] MEDS: HYDROCHLOROTHIAZIDE 25 MG TABLET (FP) PO SCH (13:23)
[2024-04-13] MEDS: MAG HYDROX/AL HYDROX/SIMETH 30 ML UNIT-DOSE CUP PO PRN (09:15)
[2024-04-13] MEDS: ACETAMINOPHEN 325 MG TABLET (FP) PO PRN (09:16)
[2024-04-13] MEDS: BUPRENORPHINE/NALOXONE 4 MG/1 MG FILM PACKET SL ONE (10:58)
[2024-04-14] MEDS: BUPRENORPHINE/NALOXONE 2 MG/0.5 MG FILM PACKET SL SCH (09:06)
[2024-04-14] MEDS ORDERED: SELENIUM SULFIDE 2.25% 180 ML SHAMPOO TP SCH (10:00)
[2024-04-15] MEDS: TAMSULOSIN HCL 0.4 MG CAP PO SCH (21:23)
[2024-04-16 11:20] LABS: HIV INTERPRETATION NEGATIVE (NEGATIVE)
[2024-04-25] MEDS: BENZOCAINE/MENTHOL (CHLORASEPTIC ) LOZENGE MM PRN (15:04)
[2024-04-28] MEDS: BUPRENORPHINE/NALOXONE 4 MG/1 MG FILM PACKET SL SCH (18:16)
[2024-04-29] MEDS: BUPRENORPHINE/NALOXONE 2 MG/0.5 MG FILM PACKET SL SCH (06:10)
[2024-05-03] MEDS: BUPRENORPHINE/NALOXONE 4 MG/1 MG FILM PACKET SL SCH (17:53)
[2024-05-04 06:33] VITALS: TEMP 97.7
[2024-05-05 06:48] VITALS: BP 136/82; PULSE 75; RESP 17
== END 2024-05-05 09:02 | disposition home or self-care (01) | DRG 772 ==
LOC: YASAS 13:21 → Y3E 19:31
PROVIDERS: ADMIT Psychiatry & Neurology Pain Medicine; ATTEND Psychiatry & Neurology Pain Medicine
PROC: HZ42ZZZ Group Counseling for Substance Abuse Treatment, Cognitive-Behavioral (ICD-10-PCS; principal; 2024-04-10)
DX: F11.20 Opioid dependence, uncomplicated (principal); F10.20 Alcohol dependence, uncomplicated; F14.20 Cocaine dependence, uncomplicated; F17.210 Nicotine dependence, cigarettes, uncomplicated; F19.282 Other psychoactive substance dependence with psychoactive substance-induced sleep disorder; I10 Essential (primary) hypertension; N40.0 Benign prostatic hyperplasia without lower urinary tract symptoms
CPT/HCPCS: 36415; 71046-TC-FY; 80053; 80307; 81003; 85027; 86780; 86803; 87389; 87491; 87591; 87661; 93005; 93010